=== PATIENT | female | born 1955 | race Caucasian/White ===

== ENCOUNTER 2018-02-11 10:01 | Observation (INO) | payer OTHER ==
[2018-02-11] MEDS ORDERED: ASPIRIN 81 MG TABLET, CHEWABLE PO ONE (10:23)
[2018-02-11] MEDS ORDERED: LORAZEPAM INJ 2 MG/1 ML VIAL IV ONE (10:30)
--- NOTE | 2018-02-11 10:35 | ER Document Report ---
ED General - General Chief Complaint: Chest Pain Stated Complaint: CHEST PAIN Time Seen by Provider: 02/11/18 10:23 TRAVEL OUTSIDE OF THE [place] IN LAST 30 DAYS: No - HPI Notes: Patient is a 62-year-old female with a history of hypothyroidism, hypertension, and type 2 diabetes who presents to the ED complaining of chest heaviness that began about 4 hours ago. Patient states that the heaviness is still present. Patient states that she thought she felt a soreness to her left arm as well as to the left shoulder blade area. Patient states that nothing makes the pain worse or better. Patient states that she is able to ambulate without any worsening symptoms or dyspnea on exertion. She has been eating and drinking without any difficulties. She is having normal bowel movements and urinating normally. She has not had any symptoms similar previously. No cardiopulmonary medical history. Denies any smoking or alcohol. Denies any prolonged immobilization, distance travel, recent surgery/trauma, personal cancer history, hormone use, smoking, or previous DVT/PE. She did not have any sweats or dizziness associated. Denies any headache, fever, URI, sore throat, palpitations, syncope, cough, shortness of breath, wheeze, dyspnea, abdominal pain, nausea/vomiting/diarrhea, urinary retention, dysuria, hematuria, loss of control of bowel or bladder, numbness/tingling, saddle anesthesia, muscle paralysis/weakness, or rash. - Related Data Allergies/Adverse Reactions: Iodinated Contrast- Oral and IV Dye [IV Dye, Iodine Containing] Allergy (Verified 02/15/16 08:57) levofloxacin [From Levaquin] Allergy (Verified 02/15/16 08:57) morphine Adverse Reaction (Verified 02/15/16 08:57) Nausea Past Medical History - Social History Smoking Status: Never Smoker Family History: Reviewed & Not Pertinent - Past Medical History Cardiac Medical History: Reports: Hx Hypertension Denies: Hx Coronary Artery Disease, Hx Heart Attack Pulmonary Medical History: Reports: Hx Pneumonia Denies: Hx Asthma, Hx Bronchitis, Hx COPD Neurological Medical History: Denies: Hx Cerebrovascular Accident, Hx Seizures Endocrine Medical History: Reports: Hx Diabetes Mellitus Type 2, Hx Hypothyroidism Musculoskeletal Medical History: Denies Hx Arthritis Past Surgical History: Reports: Hx Appendectomy, Hx Cholecystectomy, Hx Hysterectomy - partial, Hx Thyroid Surgery - thyroidectomy - Immunizations Hx Diphtheria, Pertussis, Tetanus Vaccination: Yes - 2011 Review of Systems - Review of Systems -: Yes All other systems reviewed and negative Physical Exam - Vital signs Vitals: Temp Pulse Resp BP Pulse Ox 99.1 F 98 16 187/99 H 98 02/11/18 10:15 02/11/18 10:15 02/11/18 10:15 02/11/18 10:15 02/11/18 10:15 - Notes Notes: PHYSICAL EXAMINATION: GENERAL: Well-appearing, well-nourished and in no acute distress. HEAD: Atraumatic, normocephalic. EYES: Pupils equal round and reactive to light, extraocular movements intact, sclera anicteric, conjunctiva are normal. ENT: Nares patent and without discharge. oropharynx clear without exudates. No tonsilar hypertrophy or erythema. Moist mucous membranes. NECK: Normal range of motion, supple without lymphadenopathy Chest: + minimally reproducible tenderness to palpation of the sternal area. LUNGS: Breath sounds clear to auscultation bilaterally and equal. No wheezes rales or rhonchi. HEART: Regular rate and rhythm without murmurs, rubs, gallops. ABDOMEN: Soft, nontender, nondistended abdomen. No guarding, no rebound. No masses appreciated. Normal bowel sounds present. No CVA tenderness bilaterally. Musculoskeletal: FROM to passive/active. Strength 5+/5. Nicho neg. No asymmetry to LE's. Extremities: No cyanosis, clubbing, or edema b/l. Peripheral pulses 2+. Capillary refill less than 3 seconds. NEUROLOGICAL: Normal speech, normal gait. PSYCH: anxious SKIN: Warm, Dry, normal turgor, no rashes or lesions noted. Course - Re-evaluation Re-evalutation: 02/11/18 10:33 Aspirin and nitro ordered as well as chest pain work up. I will give her a small dose of ativan as she does appear anxious. Pending her BP response to nitro, we may consider clonidine. Pt did take her lisinopril this morning. HR currently 93 and not tachycardic. No hypoxia or tachypnea. 02/11/18 11:42 Patient is an afebrile, well-hydrated, 62-year-old female who presents to the ED with atypical chest pain. Vitals are currently acceptable without any significant tachycardia, tachypnea, or hypoxia. PE is otherwise unremarkable aside from the mildly reproducible chest wall tenderness. Patient has a heart score of 4. CBC, CMP, cardiac enzymes/EKG, chest x-ray were acceptable at this time. I did review the case with the patient as well as the risk and benefit of observation versus discharge to home. Patient is open to being admitted for continued observation and serial enzymes. I did call and speak with our hospitalist, Dr. Schwartz, who accepted patient to telemetry floor. - Vital Signs Vital signs: Temp Pulse Resp BP Pulse Ox 99.1 F 98 20 161/100 H 97 02/11/18 10:15 02/11/18 10:15 02/11/18 11:31 02/11/18 11:31 02/11/18 11:31 - Laboratory Result Diagrams: 02/11/18 10:37 02/11/18 10:37 Laboratory results interpreted by me: 02/11/18 10:37 Potassium 3.5 L BUN 6 L Creatinine 0.48 L Glucose 255 H Discharge - Discharge Clinical Impression: Atypical chest pain Condition: Stable Disposition: ADMITTED INPATIENT Admitting Provider: Hospitalist - Dr. Schwartz Unit Admitted: Telemetry Referrals: SIMI TELLEZ FNP [Primary Care Provider] - Follow up as needed
[2018-02-11] MEDS: NITROGLYCERIN 0.4 MG/TAB 25 TAB/BOTTLE SL PRN ×2 (10:38→11:32)
[2018-02-11 10:49] LABS: ABSOLUTE EOSINOPHILS # (AUTO) 0.1 10^3/uL (0.0-0.6); ABSOLUTE LYMPHOCYTES (AUTO) 1.3 10^3/uL (0.5-4.7); ABSOLUTE MONOCYTES (AUTO) 0.5 10^3/uL (0.1-1.4); ABSOLUTE NEUT (AUTO) 4.3 10^3/uL (1.7-8.2); BASOPHILS % (AUTO) 0.2 % (0-2); EOSINOPHILS % (AUTO) 0.8 % (0-6); HEMATOCRIT 43.2 % (36.0-47.0); HEMOGLOBIN 15.2 g/dL (12.0-15.5); LYMPHOCYTES % (AUTO) 21.1 % (13-45); MEAN CORPUSCULAR HGB CONC 35.1 g/dL (32.0-36.0); MEAN CORPUSCULAR VOLUME 85 fl (80-97); MONOCYTES % (AUTO) 8.8 % (3-13); PLATELET COUNT 245 10^3/uL (150-450); RED BLOOD COUNT 5.07 10^6/uL (3.72-5.28); RED CELL DISTRIBUTION WIDTH 12.4 % (11.5-14.0); SEGMENTED NEUTROPHILS % (AUTO) 69.1 % (42-78); TOTAL CELLS COUNTED % (AUTO) 100 %; WHITE BLOOD COUNT 6.2 10^3/uL (4.0-10.5)
[2018-02-11 10:55] LABS: INTERNATIONAL RATION (INR) 0.79; PROTHROMBIN TIME 11.4 SEC (11.4-15.4)
[2018-02-11 11:04] LABS: ALANINE AMINOTRANSFERASE 25 U/L (9-52); ALKALINE PHOSPHATASE 88 U/L (38-126); ANION GAP 9 (5-19); ASPARTATE AMINO TRANSFERASE 21 U/L (14-36); BILIRUBIN,DIRECT 0.3 mg/dL (0.0-0.4); BILIRUBIN,TOTAL 1.3 mg/dL (0.2-1.3); BLOOD UREA NITROGEN 6 mg/dL (7-20); CALCIUM 9.2 mg/dL (8.4-10.2); CARBON DIOXIDE 30 mmol/L (22-30); CHLORIDE 99 mmol/L (98-107); GLUCOSE 255 mg/dL (75-110); POTASSIUM 3.5 mmol/L (3.6-5.0); SODIUM 138.3 mmol/L (137-145); TOTAL PROTEIN 6.3 g/dL (6.3-8.2)
--- NOTE | 2018-02-11 11:29 | RADIOLOGY REPORT (SQ) ---
EXAM DESCRIPTION: CHEST SINGLE VIEW COMPLETED DATE/TIME: 02/11/2018 11:18 am REASON FOR STUDY: CP COMPARISON: 08/04/2007. EXAM PARAMETERS: NUMBER OF VIEWS: One view. TECHNIQUE: Single frontal radiographic view of the chest acquired. RADIATION DOSE: NA LIMITATIONS: None. FINDINGS: LUNGS AND PLEURA: No opacities, masses or pneumothorax. No pleural effusion. MEDIASTINUM AND HILAR STRUCTURES: No masses. Contour normal. HEART AND VASCULAR STRUCTURES: Heart normal in size. Normal vasculature. BONES: No acute findings. HARDWARE: None in the chest. OTHER: No other significant finding. IMPRESSION: NO ACUTE RADIOGRAPHIC FINDING IN THE CHEST. TECHNICAL DOCUMENTATION: JOB ID: [id number] New [employer]- All Rights Reserved Reading location - IP/workstation name: [email or web address]
[2018-02-11] MEDS ORDERED: NITROGLYCERIN 0.4 MG/TAB 25 TAB/BOTTLE SL PRN (12:35)
--- NOTE | 2018-02-11 12:38 | PDOC H&P ---
History of Present Illness Admission Date/PCP: 02/11/18 11:59 DAVID COLEMAN History of Present Illness: RADHA ORTEGA is a 62 year old female with a past medical history of non -insulin-dependent diabetes mellitus, hypertension, hyperlipidemia and hypothyroidism who presented with chest pain. Patient says that she woke up around 6:45 this morning and experience chest heaviness, and the midsternal area as if some weight is placed on top of her chest, 3/10 intensity. This lingered and she decided to come to the ER. She was given 4 baby aspirin and nitro and he says she did not get significant relief. She denies shortness of breath or palpitations. She is not sure if it is exertional as she said she has not really exerted herself much this morning. She denies any fever, cough or chills. She denies prior history of CAD or MS. She says she never had a stress testing done before. Past Medical History Cardiac Medical History: Reports: Hypertension Denies: Coronary Artery Disease, Myocardial Infarction Pulmonary Medical History: Reports: Pneumonia Denies: Asthma, Bronchitis, Chronic Obstructive Pulmonary Disease (COPD) Neurological Medical History: Denies: Seizures Endocrine Medical History: Reports: Diabetes Mellitus Type 2, Hypothyroidism Musculoskeltal Medical History: Denies: Arthritis Hematology: Denies: Anemia Past Surgical History Past Surgical History: Reports: Appendectomy, Cholecystectomy, Hysterectomy - partial Social History Smoking Status: Never Smoker Family History Family History: Reviewed & Not Pertinent Parental Family History Reviewed: Yes - No premature CAD Children Family History Reviewed: No Sibling(s) Family History Reviewed.: No Medication/Allergy Home Medications: Levothyroxine Sodium [Synthroid] 125 mcg PO Q6AM 02/11/18 Lisinopril [Prinivil 10 mg Tablet] 10 mg PO DAILY 02/11/18 Sitagliptin Phos/Metformin HCl [Janumet Xr 100-1,000 mg Tablet] 1 each PO QPM 02/11/18 Allergies/Adverse Reactions: Iodinated Contrast- Oral and IV Dye [IV Dye, Iodine Containing] Allergy (Verified 02/11/18 11:58) levofloxacin [From Levaquin] Allergy (Verified 02/11/18 11:58) morphine Adverse Reaction (Verified 02/11/18 11:58) Nausea Review of Systems All systems: reviewed and no additional remarkable complaints except as stated - As mentioned in HPI Physical Exam Vital Signs: Temp Pulse Resp BP Pulse Ox 99.1 F 98 17 167/105 H 100 02/11/18 10:15 02/11/18 10:15 02/11/18 12:01 02/11/18 12:01 02/11/18 12:01 General appearance: PRESENT: no acute distress, well-developed, well-nourished Head exam: PRESENT: atraumatic, normocephalic Eye exam: PRESENT: conjunctiva pink, EOMI, PERRLA. ABSENT: scleral icterus Ear exam: PRESENT: normal external ear exam Mouth exam: PRESENT: moist, tongue midline Neck exam: ABSENT: carotid bruit, JVD, lymphadenopathy, thyromegaly Respiratory exam: PRESENT: clear to auscultation maxine. ABSENT: rales, rhonchi, wheezes Pulses: PRESENT: normal dorsalis pedis pul GI/Abdominal exam: PRESENT: normal bowel sounds, soft. ABSENT: distended, guarding, mass, organolmegaly, rebound, tenderness Rectal exam: PRESENT: deferred Neurological exam: PRESENT: alert, awake, oriented to person, oriented to place, oriented to time, oriented to situation, CN II-XII grossly intact. ABSENT: motor sensory deficit Results Laboratory Results: 02/11/18 10:37 02/11/18 10:37 02/11/18 02/11/18 10:37 10:37 WBC 6.2 RBC 5.07 Hgb 15.2 Hct 43.2 MCV 85 MCH 30.0 MCHC 35.1 RDW 12.4 Plt Count 245 Seg Neutrophils % 69.1 Lymphocytes % 21.1 Monocytes % 8.8 Eosinophils % 0.8 Basophils % 0.2 Absolute Neutrophils 4.3 Absolute Lymphocytes 1.3 Absolute Monocytes 0.5 Absolute Eosinophils 0.1 Absolute Basophils 0.0 Sodium 138.3 Potassium 3.5 L Chloride 99 Carbon Dioxide 30 Anion Gap 9 BUN 6 L Creatinine 0.48 L Est GFR ( Amer) > 60 Est GFR (Non-Af Amer) > 60 Glucose 255 H Calcium 9.2 Total Bilirubin 1.3 AST 21 ALT 25 Alkaline Phosphatase 88 Total Protein 6.3 Albumin 4.0 02/11/18 10:37 Troponin I 0.063 Impressions: Chest X-Ray 02/11/18 10:23 IMPRESSION: NO ACUTE RADIOGRAPHIC FINDING IN THE CHEST. Assessment & Plan - Diagnosis (1) Atypical chest pain Is this a current diagnosis for this admission?: Yes Plan: EKG is unremarkable aside from a left anterior fascicular block which is not new compared to the EKG in 2012. Troponin is mildly elevated at 0.06. We will continue to cycle troponins and EKGs. Discussed with Dr. Fisher and will schedule patient for stress testing tomorrow if her troponin will stabilize or trend down and if she will have improvement of her chest pain. (2) Diabetes mellitus Qualifiers: Diabetes mellitus type: type 2 Is this a current diagnosis for this admission?: Yes Plan: Patient takes metformin at home. Will place patient on sliding scale for now. Check A1c. - Time Time Spent: 30 to 50 Minutes
[2018-02-11] MEDS ORDERED: LIDOCAINE 2% VISCOUS SOLN 20 ML UDCUP PO ONE (13:15)
[2018-02-11] MEDS ORDERED: METOCLOPRAMIDE HCL ORAL SOLN 10 MG/10 ML UDCUP PO ONE (13:15)
[2018-02-11] MEDS ORDERED: MAG HYDROX/AL HYDROX/SIMETH SUSP 30 ML UDCUP PO ONE (13:15)
--- NOTE | 2018-02-11 13:15 | EKG REPORT ---
SEVERITY:- ABNORMAL ECG - SINUS RHYTHM LEFT ANTERIOR FASCICULAR BLOCK CONSIDER ANTERIOR INFARCT : Confirmed by: Mert Tapia MD 11-Feb-2018 13:14:36
[2018-02-11] MEDS ORDERED: DEXTROSE 50%-WATER 25 GM/50 ML DISP.SYRIN IV PRN ×2 (15:05)
[2018-02-11] MEDS ORDERED: INSULIN LISPRO 100 UNIT/ML 3 ML VIAL SUBCUT PRN (15:05)
[2018-02-11] MEDS ORDERED: DEXTROSE 40% GEL 15 GM TUBE PO PRN ×2 (15:05)
[2018-02-11] MEDS ORDERED: GLUCAGON,HUMAN RECOMB 1 MG INJ IM PRN (15:05)
[2018-02-11 15:46] VITALS: BP 143/77
[2018-02-11] MEDS ORDERED: NITROGLYCERIN/D5W 50 MG/250 ML RTUINJ IV PRN (17:54)
[2018-02-11] MEDS ORDERED: ENOXAPARIN SODIUM INJ 100 MG/1 ML DISP.SYRIN SUBCUT SCH (18:00)
--- NOTE | 2018-02-11 18:07 | PDOC TRANSFER SUMMARY ---
General Admission Date/PCP: 02/11/18 11:59 CATHRYN COLEMANP - Transfer Diagnosis (1) NSTEMI (non-ST elevated myocardial infarction) Is this a current diagnosis for this admission?: Yes (2) Diabetes mellitus Is this a current diagnosis for this admission?: Yes - Transfer Medications Home Medications: Levothyroxine Sodium [Synthroid] 125 mcg PO Q6AM 02/11/18 Lisinopril [Prinivil 10 mg Tablet] 10 mg PO DAILY 02/11/18 Sitagliptin Phos/Metformin HCl [Janumet Xr 100-1,000 mg Tablet] 1 each PO QPM 02/11/18 Transfer Medications: Current Medications Aspirin (Aspirin 81 Mg Chewable Tablet) 81 mg PO DAILY [facility] Stop: 03/14/18 09:59 Dextrose (Dextrose Inj 50% Syringe (25 Gm/50 Ml)) 12.5 gm IV PRN PRN; Protocol PRN Reason: FOR BG 50-69 IN ALERT PATIENT Stop: 03/13/18 15:04 Dextrose (Dextrose Inj 50% Syringe (25 Gm/50 Ml)) 25 gm IV PRN PRN; Protocol PRN Reason: PER PROTOCOL Stop: 03/13/18 15:04 Enoxaparin Sodium (Lovenox Inj 100 Mg/1 Ml Disp.Syrin) 95 mg SUBCUT Q12A ROWAN Stop: 03/13/18 17:59 Last Admin: 02/11/18 17:44 Dose: 95 mg Documented by: Glucagon (Glucagen Inj 1 Mg Vial) 1 mg IM PRN PRN; Protocol PRN Reason: Evaluate for BG < 70 Stop: 03/13/18 15:04 Glucose (Glutose 40% Gel 15 Gm Tube) 15 gm PO PRN PRN; Protocol PRN Reason: FOR BG 50-69 IN ALERT PATIENT Stop: 03/13/18 15:04 Glucose (Glutose 40% Gel 15 Gm Tube) 30 gm PO PRN PRN; Protocol PRN Reason: FOR BG < 50 IN ALERT PATIENT Stop: 03/13/18 15:04 Nitroglycerin/Dextrose (Ntg Rtu 50 Mg/D5w 250 Ml Iv Premix Bottle) 50 mg in 250 mls @ 0 mls/hr IV CONTINUOUS PRN; Protocol PRN Reason: THIS MED IS NOT "PRN" Stop: 03/13/18 17:53 Insulin Human Lispro (Humalog Insulin 100 Unit/1 Ml 3 Ml Vial) 0 - 12 unit SUBCUT ACHSP PRN; Protocol PRN Reason: PER PROTOCOL Stop: 03/13/18 15:04 Last Admin: 02/11/18 16:28 Dose: 4 unit Documented by: Levothyroxine Sodium (Synthroid 0.1 Mg Tablet) 0.1 mg PO Q6AM [facility] Stop: 03/14/18 05:59 Levothyroxine Sodium (Synthroid 0.025 Mg Tablet) 0.025 mg PO Q6AM ROWAN Stop: 03/14/18 05:59 Lisinopril (Prinivil 10 Mg Tablet) 10 mg PO DAILY [facility] Stop: 03/14/18 09:59 Nitroglycerin (Nitrostat 0.4 Mg (1/150 Gr) Tabs 25/Bottle) 1 tab SL Q5MP PRN PRN Reason: FOR CHEST PAIN Stop: 03/13/18 12:34 Sodium Chloride (Saline Flush 2.5 Ml Monoject Prefil Syrin) 2.5 ml IV Q8 [facility] Stop: 03/13/18 13:59 Last Admin: 02/11/18 14:11 Dose: Not Given Documented by: - Allergies Allergies/Adverse Reactions: Iodinated Contrast- Oral and IV Dye [IV Dye, Iodine Containing] Allergy (German ified 02/11/18 11:58) levofloxacin [From Levaquin] Allergy (Verified 02/11/18 11:58) morphine Adverse Reaction (Verified 02/11/18 11:58) Nausea Hospital Course Hospital Course: RADHA ORTEGA is a 62 year old female with a past medical history of n [id number] diabetes mellitus, hypertension, hyperlipidemia, obesity and hypothyroidism who presented with chest pain. Patient says that she woke up around 6:45 this morning and experience chest heaviness, and the midsternal area as if some heavy weight is placed on top of her chest, 3/10 intensity. This lingered and she decided to come to the ER. She was given 4 baby aspirin and nitro and he says she did not get significant relief. She denies shortness of breath or palpitations. She denies any fever, cough or chills. She denies prior history of CAD or DE. She says she never had a stress testing done before. Initial troponin was 0.06. Her EKGs shows LAFB with very mild ST depressions on the anterior leads. Troponin was repeated in 5 hrs and significantly went up to 0.58. Her chest pain persists at 3/10. Discussed with cardiology who recommended starting patient on nitro drip, Lovenox and transfer to tertiary center for cath. Discussed with [facility] cardiac connection and Dr. Payan has accepted the transfer. Physical Exam Vital Signs: Temp Pulse Resp BP Pulse Ox 98.2 F 90 14 143/77 H 99 02/11/18 15:14 02/11/18 15:14 02/11/18 15:14 02/11/18 15:14 02/11/18 15:14 Intake & Output 02/10/18 02/11/18 02/12/18 06:59 06:59 06:59 Weight 213 lb 6.519 oz General appearance: PRESENT: no acute distress, well-developed, well-nourished Head exam: PRESENT: atraumatic, normocephalic Eye exam: PRESENT: conjunctiva pink, EOMI, PERRLA. ABSENT: scleral icterus Ear exam: PRESENT: normal external ear exam Mouth exam: PRESENT: moist, tongue midline Neck exam: ABSENT: carotid bruit, JVD, lymphadenopathy, thyromegaly Respiratory exam: PRESENT: clear to auscultation maxine. ABSENT: rales, rhonchi, wheezes Cardiovascular exam: PRESENT: RRR. ABSENT: diastolic murmur, rubs, systolic murmur Pulses: PRESENT: normal dorsalis pedis pul GI/Abdominal exam: PRESENT: normal bowel sounds, soft. ABSENT: distended, guarding, mass, organolmegaly, rebound, tenderness Rectal exam: PRESENT: deferred Neurological exam: PRESENT: alert, awake, oriented to person, oriented to place, oriented to time, oriented to situation, CN II-XII grossly intact. ABSENT: motor sensory deficit Results Laboratory Results: 02/11/18 10:37 02/11/18 10:37 02/11/18 02/11/18 02/11/18 10:37 10:37 10:37 WBC 6.2 RBC 5.07 Hgb 15.2 Hct 43.2 MCV 85 MCH 30.0 MCHC 35.1 RDW 12.4 Plt Count 245 Seg Neutrophils % 69.1 Lymphocytes % 21.1 Monocytes % 8.8 Eosinophils % 0.8 Basophils % 0.2 Absolute Neutrophils 4.3 Absolute Lymphocytes 1.3 Absolute Monocytes 0.5 Absolute Eosinophils 0.1 Absolute Basophils 0.0 Sodium 138.3 Potassium 3.5 L Chloride 99 Carbon Dioxide 30 Anion Gap 9 BUN 6 L Creatinine 0.48 L Est GFR ( Amer) > 60 Est GFR (Non-Af Amer) > 60 Glucose 255 H Calcium 9.2 Total Bilirubin 1.3 AST 21 ALT 25 Alkaline Phosphatase 88 Total Protein 6.3 Albumin 4.0 TSH 1.73 02/11/18 02/11/18 10:37 15:00 Troponin I 0.063 0.580 Impressions: Chest X-Ray 02/11/18 10:23 IMPRESSION: NO ACUTE RADIOGRAPHIC FINDING IN THE CHEST.
--- NOTE | 2018-02-11 18:20 | EKG REPORT ---
SEVERITY:- ABNORMAL ECG - SINUS RHYTHM LEFT ANTERIOR FASCICULAR BLOCK BORDERLINE R WAVE PROGRESSION, ANTERIOR LEADS BORDERLINE T ABNORMALITIES, ANTERIOR LEADS : Confirmed by: Mert Tapia MD 11-Feb-2018 18:19:10
[2018-02-11] MEDS ORDERED: HEPARIN SOD (PORCINE) 5,000 UNIT/ML 1 ML SYRINGE SUBCUT SCH (22:00)
[2018-02-12] MEDS ORDERED: LEVOTHYROXINE SODIUM 0.1 MG TABLET PO SCH (06:00)
[2018-02-12] MEDS ORDERED: (PENDING PHARMACY ID) (Levothyroxine Sodium [Synthroid] 125 MCG) PO SCH (06:00)
[2018-02-12] MEDS ORDERED: LEVOTHYROXINE SODIUM 0.025 MG TABLET PO SCH (06:00)
[2018-02-12] MEDS ORDERED: LISINOPRIL 10 MG TABLET PO SCH (10:00)
[2018-02-12] MEDS ORDERED: ASPIRIN 81 MG TABLET, CHEWABLE PO SCH (10:00)
== END 2018-02-11 19:45 | disposition short-term general hospital (02) ==
LOC: ER 10:01 → EH 11:59 → INTOOBSV 11:59 → 4S 15:42 → 3W 19:15
PROVIDERS: ADMIT Internal Medicine; ATTEND Internal Medicine
DX: I21.4 Non-ST elevation (NSTEMI) myocardial infarction (principal); E11.9 Type 2 diabetes mellitus without complications; I44.4 Left anterior fascicular block; E03.9 Hypothyroidism, unspecified; I10 Essential (primary) hypertension; Z79.899 Other long term (current) drug therapy; Z90.49 Acquired absence of other specified parts of digestive tract; Z79.84 Long term (current) use of oral hypoglycemic drugs
CPT/HCPCS: 93005 ×2; 99285; 96374; 36415; 82962; 84443; 85025; 85610; 80053; 84484; 83036; 71045; 93010; J1815; J3490; J2060; J1650; G0378

== ENCOUNTER 2018-02-16 17:23 | Emergency (ER) | payer OTHER ==
[2018-02-16] MEDS ORDERED: ASPIRIN 81 MG TABLET, CHEWABLE PO ONE (17:49)
[2018-02-16] MEDS ORDERED: METOCLOPRAMIDE HCL ORAL SOLN 10 MG/10 ML UDCUP PO ONE (18:04)
[2018-02-16] MEDS ORDERED: MAG HYDROX/AL HYDROX/SIMETH SUSP 30 ML UDCUP PO ONE (18:04)
[2018-02-16] MEDS ORDERED: LIDOCAINE 2% VISCOUS SOLN 20 ML UDCUP PO ONE (18:04)
--- NOTE | 2018-02-16 18:08 | ER Document Report ---
ED General - General Stated Complaint: NAUSEA Time Seen by Provider: 02/16/18 17:47 Mode of Arrival: Ambulatory Information source: Patient, [facility] Records, Outside Facility Records Notes: 62-year-old female with hypertension, type 2 diabetes, hypothyroidism, coronary artery disease with recent diagnosis of an STEMI 5 days ago presents with chest pain that started 8 hours prior to arrival. Patient describes the pain as burning, intermittent and without radiation. Patient denies associated diaphoresis, nausea, shortness of breath, lightheadedness. Patient was discharged from the hospital 2 days ago with new medications which include isosorbide 30 mg daily, Klor-Con 20 mg 2 tabs twice daily metoprolol 50 mg daily Brilinta 90 mg daily and atorvastatin 80 mg daily. Patient is very tearful will not tell me why she is crying. States that her children just left to go back to [place]. TRAVEL OUTSIDE OF THE [place] IN LAST 30 DAYS: No - Related Data Allergies/Adverse Reactions: Iodinated Contrast- Oral and IV Dye [IV Dye, Iodine Containing] Allergy (Verified 02/11/18 11:58) levofloxacin [From Levaquin] Allergy (Verified 02/11/18 11:58) morphine Adverse Reaction (Verified 02/11/18 11:58) Nausea Past Medical History - Social History Smoking Status: Never Smoker Chew tobacco use (# tins/day): No Frequency of alcohol use: None Drug Abuse: None Family History: Reviewed & Not Pertinent Patient has suicidal ideation: No Patient has homicidal ideation: No - Past Medical History Cardiac Medical History: Reports: Hx Heart Attack, Hx Hypertension Denies: Hx Coronary Artery Disease Pulmonary Medical History: Reports: Hx Pneumonia Denies: Hx Asthma, Hx Bronchitis, Hx COPD Neurological Medical History: Denies: Hx Cerebrovascular Accident, Hx Seizures Endocrine Medical History: Reports: Hx Diabetes Mellitus Type 2, Hx Hypothyroidism Renal/ Medical History: Denies: Hx Peritoneal Dialysis Musculoskeletal Medical History: Denies Hx Arthritis Past Surgical History: Reports: Hx Appendectomy, Hx Cholecystectomy, Hx Hysterectomy, Hx Orthopedic Surgery - toe, Hx Thyroid Surgery - thyroidectomy - Immunizations Hx Diphtheria, Pertussis, Tetanus Vaccination: Yes - 2011 Physical Exam - Vital signs Vitals: Temp Pulse Resp BP Pulse Ox 98.6 F 97 16 166/93 H 97 02/16/18 17:58 02/16/18 17:58 02/16/18 17:58 02/16/18 17:58 02/16/18 17:58 Course - Re-evaluation Re-evalutation: Laboratory 02/16/18 02/16/18 02/16/18 18:05 18:05 18:05 WBC 8.2 RBC 5.40 H Hgb 15.8 H Hct 45.1 MCV 84 MCH 29.3 MCHC 35.1 RDW 12.6 Plt Count 312 Seg Neutrophils % 71.0 Lymphocytes % 19.6 Monocytes % 8.5 Eosinophils % 0.5 Basophils % 0.4 Absolute Neutrophils 5.8 Absolute Lymphocytes 1.6 Absolute Monocytes 0.7 Absolute Eosinophils 0.0 Absolute Basophils 0.0 Sodium 136.8 L Potassium 3.9 Chloride 102 Carbon Dioxide 25 Anion Gap 10 BUN 12 Creatinine 0.46 L Est GFR ( Amer) > 60 Est GFR (Non-Af Amer) > 60 Glucose 204 H Calcium 9.8 Total Bilirubin 1.8 H Direct Bilirubin 0.2 Neonat Total Bilirubin Not Reportable Neonat Direct Bilirubin Not Reportable Neonat Indirect Bili Not Reportable AST 40 H ALT 31 Alkaline Phosphatase 67 Creatine Kinase 60 CK-MB (CK-2) 0.56 Troponin I 1.550 Total Protein 7.1 Albumin 4.1 Lipase 02/16/18 02/16/18 02/16/18 18:05 20:50 23:00 WBC RBC Hgb Hct MCV MCH MCHC RDW Plt Count Seg Neutrophils % Lymphocytes % Monocytes % Eosinophils % Basophils % Absolute Neutrophils Absolute Lymphocytes Absolute Monocytes Absolute Eosinophils Absolute Basophils Sodium Potassium Chloride Carbon Dioxide Anion Gap BUN Creatinine Est GFR ( Amer) Est GFR (Non-Af Amer) Glucose Calcium Total Bilirubin Direct Bilirubin Neonat Total Bilirubin Neonat Direct Bilirubin Neonat Indirect Bili AST ALT Alkaline Phosphatase Creatine Kinase CK-MB (CK-2) Troponin I 1.660 1.590 Total Protein Albumin Lipase 219.9 Chest X-Ray 02/16/18 17:49 IMPRESSION: NO ACUTE RADIOGRAPHIC FINDING IN THE CHEST. Temp Pulse Resp BP Pulse Ox 98.6 F 97 16 166/93 H 97 02/16/18 17:58 02/16/18 17:58 02/16/18 17:58 02/16/18 17:58 02/16/18 17:58 02/16/18 19:14 Called [facility] where the patient was sent from [facility] after having found to have an NSTEMI, to see exactly what her last troponin upon discharge was. They report her last troponin upon discharge was 6.85. Her troponin here today is 1.55. They also state that patient did not require any stent placement or angioplasty. 02/16/18 22:41 Patient reevaluated after receiving 0.5 mg of Ativan IV. She states that her chest pain has resolved. She is no longer tearful. 02/16/18 23:52 Patient reevaluated again after her third troponin. She still remains chest pain free. I did call [facility] again to let them know that her second troponin went up by 0.1 but they assured me that this was still a great improvement when compared to her previous troponin upon discharge which was 6.85. 02/16/18 23:55 Third troponin is 1.59. Patient advised to take her new medications with food. She is also advised to document any adverse effects that they may cause so that she could discuss this with her glass checker and primary care physician. 62-year-old female with recent diagnosis of an STEMI presents with complaint of burning chest pain that started several hours prior to arrival. Vital signs reviewed upon arrival and patient is afebrile, mildly hypertensive but not hypoxic. She does not appear toxic or dehydrated. She is in mild distress but tearful, appears anxious. Upon my initial exam she has no chest pain. Patient' s initial troponin was elevated but I did contact [facility] who told me her discharge troponin was 6.85. 3 sets of troponins were obtained during her ED course and remained essentially the same. Repeat EKG was again unchanged and without evidence of ST elevation. Patient has had no further chest pain during her ED course. Both her and her are comfortable with discharge home. Patient was evaluated and treated as appropriate for the patient's presenting symptoms and complaint, with consideration of any critical or life threatening conditions that may be associated with their obtained history and exam as noted above. All results were discussed with patient. Patient provided the opportunity to ask questions, and express concerns. Patient was educated on treatments based on their presumed diagnosis as noted above. At this time we will discharge the patient with return precautions and follow-up recommendations. Verbal discharge instructions given a the bedside. Medication warnings reviewed. Patient is in agreement with this plan and has verbalized understanding of return precautions. After careful consideration I feel that that patient can be safely discharged from the emergency department, they were advised to followup with a primary care physician in 2-3 days. Dictation on this chart was performed using voice recognition software and may result in unintended grammatical, spelling, syntax or errors. - Vital Signs Vital signs: Temp Pulse Resp BP Pulse Ox 98.6 F 97 16 166/93 H 97 02/16/18 17:58 02/16/18 17:58 02/16/18 17:58 02/16/18 17:58 02/16/18 17:58 - Laboratory Result Diagrams: 02/16/18 18:05 02/16/18 18:05 Laboratory results interpreted by me: 02/16/18 02/16/18 18:05 18:05 RBC 5.40 H Hgb 15.8 H Sodium 136.8 L Creatinine 0.46 L Glucose 204 H Total Bilirubin 1.8 H AST 40 H - Diagnostic Test Radiology reviewed: Image reviewed, Reports reviewed - EKG Interpretation by Mo EKG shows normal: Sinus rhythm Rate: Normal Rhythm: NSR [place]/QRS: LAHB/LAFB When compared to previous EKG there are: No significant change Critical Care Note - Critical Care Note Total time excluding time spent on procedures (mins): 40 - Minutes of critical care time spent in direct contact evaluating and reevaluating the patient, treating symptoms, reviewing labs and studies and speaking with family and consultants excluding any procedures Discharge - Discharge Clinical Impression: Anxiety, Nausea, Hyperglycemia Chest pain Qualifiers: Chest pain type: unspecified Qualified Code(s): R07.9 - Chest pain, unspecified Diabetes mellitus Qualifiers: Diabetes mellitus type: type 2 Diabetes mellitus usp insulin use: without exterminator termite use Diabetes mellitus complication status: without complication Qualified Code(s): E11.9 - Type 2 diabetes mellitus without complications Hypertension Qualifiers: Hypertension type: unspecified Qualified Code(s): I10 - Essential (primary) hypertension Condition: Good Disposition: HOME, SELF-CARE Instructions: Chest Pain of Unclear Cause ([facility]) Additional Instructions: You were seen today for chest pain. The exact cause of your pain is unclear. However, based on your cardiac enzyme testing, chest x-ray, and EKG it does not appear that it is from an immediately life-threatening cause at this time. Although your testing here is normal is critical that you follow-up with your primary care physician for continued evaluation of this chest pain and possible stress testing. I recommended you see your physician within the next 24-48 hours to be evaluated for consideration of a stress test. Please return to emergency department immediately if you have worsening of your chest pain, shortness of breath, vomiting, become unable to exert yourself due to pain or difficulty breathing, you pass out, or have any pain that radiates into your arms, jaw, or back. Please also return if you have any additional symptoms that are concerning to you. Prescriptions: Lorazepam [Ativan 0.5 mg Tablet] 0.5 mg PO Q12H PRN #6 tab PRN Reason: Forms: Elevated Blood Pressure Referrals: SIMI TELLEZ FNP [Primary Care Provider] - Follow up tomorrow
--- NOTE | 2018-02-16 18:14 | RADIOLOGY REPORT (SQ) ---
EXAM DESCRIPTION: CHEST SINGLE VIEW COMPLETED DATE/TIME: 02/16/2018 6:06 pm REASON FOR STUDY: chest pain COMPARISON: 02/11/2018 EXAM PARAMETERS: NUMBER OF VIEWS: One view. TECHNIQUE: Single frontal radiographic view of the chest acquired. RADIATION DOSE: NA LIMITATIONS: None. FINDINGS: LUNGS AND PLEURA: No opacities, masses or pneumothorax. No pleural effusion. MEDIASTINUM AND HILAR STRUCTURES: No masses. Contour normal. HEART AND VASCULAR STRUCTURES: Heart normal in size. Normal vasculature. BONES: No acute findings. HARDWARE: None in the chest. OTHER: No other significant finding. IMPRESSION: NO ACUTE RADIOGRAPHIC FINDING IN THE CHEST. TECHNICAL DOCUMENTATION: JOB ID: [id number] [employer]- All Rights Reserved Reading location - IP/workstation name: [email or web address]
[2018-02-16] MEDS ORDERED: ONDANSETRON HCL 8 MG TABLET PO ONE (18:21)
[2018-02-16] MEDS ORDERED: ONDANSETRON 4 MG TAB.RAPDIS PO ONE (18:23)
[2018-02-16 18:26] LABS: ABSOLUTE LYMPHOCYTES (AUTO) 1.6 10^3/uL (0.5-4.7); ABSOLUTE MONOCYTES (AUTO) 0.7 10^3/uL (0.1-1.4); ABSOLUTE NEUT (AUTO) 5.8 10^3/uL (1.7-8.2); BASOPHILS % (AUTO) 0.4 % (0-2); EOSINOPHILS % (AUTO) 0.5 % (0-6); HEMATOCRIT 45.1 % (36.0-47.0); HEMOGLOBIN 15.8 g/dL (12.0-15.5); LYMPHOCYTES % (AUTO) 19.6 % (13-45); MEAN CORPUSCULAR HEMOGLOBIN 29.3 pg (27.0-33.4); MEAN CORPUSCULAR HGB CONC 35.1 g/dL (32.0-36.0); MEAN CORPUSCULAR VOLUME 84 fl (80-97); MONOCYTES % (AUTO) 8.5 % (3-13); PLATELET COUNT 312 10^3/uL (150-450); RED CELL DISTRIBUTION WIDTH 12.6 % (11.5-14.0); TOTAL CELLS COUNTED % (AUTO) 100 %; WHITE BLOOD COUNT 8.2 10^3/uL (4.0-10.5)
[2018-02-16 18:42] LABS: ALANINE AMINOTRANSFERASE 31 U/L (9-52); ALBUMIN 4.1 g/dL (3.5-5.0); ALKALINE PHOSPHATASE 67 U/L (38-126); ANION GAP 10 (5-19); ASPARTATE AMINO TRANSFERASE 40 U/L (14-36); BILIRUBIN,DIRECT 0.2 mg/dL (0.0-0.4); BILIRUBIN,TOTAL 1.8 mg/dL (0.2-1.3); BLOOD UREA NITROGEN 12 mg/dL (7-20); CALCIUM 9.8 mg/dL (8.4-10.2); CARBON DIOXIDE 25 mmol/L (22-30); CHLORIDE 102 mmol/L (98-107); CREATINE KINASE 60 U/L (30-135); GLUCOSE 204 mg/dL (75-110); POTASSIUM 3.9 mmol/L (3.6-5.0); SODIUM 136.8 mmol/L (137-145); TOTAL PROTEIN 7.1 g/dL (6.3-8.2)
[2018-02-16 18:51] LABS: CREATINE KINASE MB 0.56 ng/mL (<4.55)
[2018-02-16 18:57] LABS: TROPONIN I 1.55 ng/mL
[2018-02-16] MEDS ORDERED: LORAZEPAM INJ 2 MG/1 ML VIAL IV ONE (19:27)
[2018-02-16 19:30] LABS: LIPASE 219.9 U/L (23-300)
--- NOTE | 2018-02-17 00:01 | EKG REPORT ---
SEVERITY:- ABNORMAL ECG - SINUS RHYTHM LEFT ANTERIOR FASCICULAR BLOCK BORDERLINE R WAVE PROGRESSION, ANTERIOR LEADS : Confirmed by: Felicity Romero 17-Feb-2018 00:00:19
--- NOTE | 2018-02-17 00:01 | EKG REPORT ---
SEVERITY:- ABNORMAL ECG - SINUS RHYTHM LEFT ANTERIOR FASCICULAR BLOCK LEFT VENTRICULAR HYPERTROPHY : Confirmed by: Felicity Romero 17-Feb-2018 00:00:04
--- NOTE | 2018-02-17 00:01 | EKG REPORT ---
SEVERITY:- ABNORMAL ECG - SINUS RHYTHM LEFT ANTERIOR FASCICULAR BLOCK BORDERLINE R WAVE PROGRESSION, ANTERIOR LEADS : Confirmed by: Felicity Romero 17-Feb-2018 00:00:36
[2018-02-17 00:37] VITALS: BP 117/81
== END 2018-02-17 00:37 | disposition home or self-care (01) ==
LOC: ER 17:23
DX: R11.0 Nausea (principal); F41.9 Anxiety disorder, unspecified; R07.9 Chest pain, unspecified; E11.65 Type 2 diabetes mellitus with hyperglycemia; E03.9 Hypothyroidism, unspecified; I25.2 Old myocardial infarction; Z88.6 Allergy status to analgesic agent; I10 Essential (primary) hypertension; Z88.3 Allergy status to other anti-infective agents
CPT/HCPCS: 93005; 99284; 96374; 36415; 82553; 82550; 83690; 85025; 80053; 84484; 71045; 93010; S0119; J3490; J2060

== ENCOUNTER 2018-03-06 17:18 | Emergency (ER) | payer OTHER ==
--- NOTE | 2018-03-06 17:45 | ER Document Report ---
ED Medical Screen (RME) - General Chief Complaint: Chest Pain Stated Complaint: CHEST DISCOMFORT Time Seen by Provider: 03/06/18 17:41 Notes: 62-year-old female patient suffered a non-STEMI on 02/11/2018, was transferred to [facility]. She had a cath showing a 40% lesion, did not have a stent placed. Return to [facility] ER on 02/16/2019 with chest pain and was discharged home with noncardiac chest pain. She presents today complaining of just not feeling well, some discomfort across her upper back, and feeling paranoid with any symptoms after suffering the non-STEMI. I have greeted and performed a rapid initial assessment of this patient. A c omprehensive ED assessment and evaluation of the patient, analysis of test results and completion of the medical decision making process will be conducted by additional ED providers. TRAVEL OUTSIDE OF THE [place]. IN LAST 30 DAYS: No - Related Data Allergies/Adverse Reactions: Iodinated Contrast- Oral and IV Dye [IV Dye, Iodine Containing] Allergy (Verified 03/06/18 17:19) levofloxacin [From Levaquin] Allergy (Verified 03/06/18 17:19) morphine Adverse Reaction (Verified 03/06/18 17:19) Nausea Past Medical History - Past Medical History Cardiac Medical History: Reports: Hx Heart Attack, Hx Hypertension Denies: Hx Coronary Artery Disease Pulmonary Medical History: Reports: Hx Pneumonia Denies: Hx Asthma, Hx Bronchitis, Hx COPD Neurological Medical History: Denies: Hx Cerebrovascular Accident, Hx Seizures Endocrine Medical History: Reports: Hx Diabetes Mellitus Type 2, Hx Hypothyroidism Renal/ Medical History: Denies: Hx Peritoneal Dialysis Musculoskeltal Medical History: Denies Hx Arthritis Past Surgical History: Reports: Hx Appendectomy, Hx Cholecystectomy, Hx Hysterectomy, Hx Orthopedic Surgery - toe, Hx Thyroid Surgery - thyroidectomy - Immunizations Hx Diphtheria, Pertussis, Tetanus Vaccination: Yes - 2011 Physical Exam - Vital signs Vitals: Temp Pulse Resp BP Pulse Ox 98.0 F 81 16 130/83 H 97 03/06/18 17:30 03/06/18 17:30 03/06/18 17:30 03/06/18 17:30 03/06/18 17:30 Course - Vital Signs Vital signs: Temp Pulse Resp BP Pulse Ox 98.0 F 81 16 130/83 H 97 03/06/18 17:30 03/06/18 17:30 03/06/18 17:30 03/06/18 17:30 03/06/18 17:30 Doctor's Discharge - Discharge Referrals: SIMI TELLEZ FNP [Primary Care Provider] - Follow up as needed
[2018-03-06 18:17] LABS: ABSOLUTE EOSINOPHILS # (AUTO) 0.1 10^3/uL (0.0-0.6); ABSOLUTE LYMPHOCYTES (AUTO) 2.1 10^3/uL (0.5-4.7); ABSOLUTE MONOCYTES (AUTO) 0.6 10^3/uL (0.1-1.4); ABSOLUTE NEUT (AUTO) 3.7 10^3/uL (1.7-8.2); BASOPHILS % (AUTO) 0.4 % (0-2); LYMPHOCYTES % (AUTO) 32.1 % (13-45); MEAN CORPUSCULAR HEMOGLOBIN 29.4 pg (27.0-33.4); MEAN CORPUSCULAR HGB CONC 34.8 g/dL (32.0-36.0); MEAN CORPUSCULAR VOLUME 85 fl (80-97); MONOCYTES % (AUTO) 8.8 % (3-13); PLATELET COUNT 292 10^3/uL (150-450); RED BLOOD COUNT 5.09 10^6/uL (3.72-5.28); RED CELL DISTRIBUTION WIDTH 12.8 % (11.5-14.0); SEGMENTED NEUTROPHILS % (AUTO) 56.7 % (42-78); TOTAL CELLS COUNTED % (AUTO) 100 %; WHITE BLOOD COUNT 6.6 10^3/uL (4.0-10.5)
[2018-03-06 18:35] LABS: ALANINE AMINOTRANSFERASE 41 U/L (9-52); ALBUMIN 4.2 g/dL (3.5-5.0); ALKALINE PHOSPHATASE 62 U/L (38-126); ANION GAP 12 (5-19); ASPARTATE AMINO TRANSFERASE 25 U/L (14-36); BILIRUBIN,DIRECT 0.3 mg/dL (0.0-0.4); BILIRUBIN,TOTAL 1.3 mg/dL (0.2-1.3); BLOOD UREA NITROGEN 20 mg/dL (7-20); CARBON DIOXIDE 20 mmol/L (22-30); CHLORIDE 105 mmol/L (98-107); CREATINE KINASE 55 U/L (30-135); GLUCOSE 105 mg/dL (75-110); SODIUM 137.1 mmol/L (137-145); TOTAL PROTEIN 6.4 g/dL (6.3-8.2)
[2018-03-06 18:36] LABS: POTASSIUM 4.2 mmol/L (3.6-5.0)
[2018-03-06 18:45] LABS: CREATINE KINASE MB 0.47 ng/mL (<4.55); TROPONIN I < 0.012 ng/mL
--- NOTE | 2018-03-06 19:01 | RADIOLOGY REPORT (SQ) ---
EXAM DESCRIPTION: CHEST SINGLE VIEW COMPLETED DATE/TIME: 03/06/2018 6:48 pm REASON FOR STUDY: Chest pain COMPARISON: 02/16/2018 TECHNIQUE: Single frontal radiographic view of the chest acquired. NUMBER OF VIEWS: One view. LIMITATIONS: None. FINDINGS: LUNGS AND PLEURA: No pneumothorax. No consolidation or pleural effusion. MEDIASTINUM AND HILAR STRUCTURES: Stable. HEART AND VASCULAR STRUCTURES: Stable. BONES: No acute findings. HARDWARE: None in the chest. OTHER: No other significant finding. IMPRESSION: NO ACUTE FINDINGS. TECHNICAL DOCUMENTATION: JOB ID: [id number] 2010 [employer]- All Rights Reserved Reading location - IP/workstation name: [employer]
--- NOTE | 2018-03-06 20:10 | ER Document Report ---
ED General - General Mode of Arrival: Ambulatory Information source: Patient TRAVEL OUTSIDE OF THE [place]. IN LAST 30 DAYS: No <RILEY CHOPRA - Last Filed: 03/07/18 00:41> <FABIAN VALDES - Last Filed: 03/07/18 00:42> - General Chief Complaint: Chest Pain Stated Complaint: CHEST DISCOMFORT Time Seen by Provider: 03/06/18 17:41 Notes: Patient is a 62 year old female with Type 2 diabetes, HTN, hyperlipidema and a history of a recent [place] () presents to the emergency department complaining of chest pain onset today. Patient states after doing laundry and taking groceries in her house she began to have chest pain. She describes the chest pain as "presence" located across her entire upper chest, further stating she notices her heart is there. She states the pain is relieved after sitting up and removing her bra. She reports taking 0.5 of Lorazepam around 12 PM this afternoon believing that her symptoms could be due to anxiety. She states she also has back pain just below her scapula and further reports some fatigue. Patient denies any cough, shortness of breath, or dizziness. Patient reports having an [place] in 2017 and being sent to [facility] where a catheterization was performed. The catheterization showed 40% blockage and no stents were placed. Patient described her chest pain at that time as an "heavy blanket". Patient reports currently being started on Jardiance approximately 1 week ago by her PCP, Dr. Penny. She further reports having an appointment for cardiac rehab next . (RILEY CHOPRA) - Related Data Allergies/Adverse Reactions: Iodinated Contrast- Oral and IV Dye [IV Dye, Iodine Containing] Allergy (Verifie d 03/06/18 17:19) levofloxacin [From Levaquin] Allergy (Verified 03/06/18 17:19) morphine Adverse Reaction (Verified 03/06/18 17:19) Nausea Past Medical History - General Information source: Patient - Social History Smoking Status: Never Smoker Cigarette use (# per day): No Chew tobacco use (# tins/day): No Smoking Education Provided: No Frequency of alcohol use: None Family History: Reviewed & Not Pertinent Patient has suicidal ideation: No Patient has homicidal ideation: No - Past Medical History Cardiac Medical History: Reports: Hx Heart Attack, Hx Hypertension Pulmonary Medical History: Reports: Hx Pneumonia Endocrine Medical History: Reports: Hx Diabetes Mellitus Type 2, Hx Hypothyroidism Past Surgical History: Reports: Hx Appendectomy, Hx Cholecystectomy, Hx Hysterectomy, Hx Orthopedic Surgery - toe, Hx Thyroid Surgery - thyroidectomy - Immunizations Hx Diphtheria, Pertussis, Tetanus Vaccination: Yes - 2011 <RILEY CHOPRA - Last Filed: 03/07/18 00:41> Review of Systems - Review of Systems Constitutional: No symptoms reported EENT: No symptoms reported Cardiovascular: See HPI, Chest pain Respiratory: No symptoms reported Gastrointestinal: No symptoms reported Genitourinary: No symptoms reported Female Genitourinary: No symptoms reported Musculoskeletal: See HPI, Back pain Skin: No symptoms reported Hematologic/Lymphatic: No symptoms reported Neurological/Psychological: No symptoms reported -: Yes All other systems reviewed and negative <RILEY CHOPRA - Last Filed: 03/07/18 00:41> Physical Exam <RILEY CHOPRA - Last Filed: 03/07/18 00:41> <FABIAN VALDES - Last Filed: 03/07/18 00:42> - Vital signs Vitals: Temp Pulse Resp BP Pulse Ox 98.0 F 81 16 130/83 H 97 03/06/18 17:30 03/06/18 17:30 03/06/18 17:30 03/06/18 17:30 03/06/18 17:30 - Notes Notes: GENERAL: Alert, interacts well. No acute distress. HEAD: Normocephalic, atraumatic. EYES: Pupils equal, round, and reactive to light. Extraocular movements intact. ENT: Oral mucosa moist, tongue midline. NECK: Full range of motion. Supple. Trachea midline. LUNGS: Clear to auscultation bilaterally, no wheezes, rales, or rhonchi. No respiratory distress. HEART: Regular rate and rhythm. No murmurs, gallops, or rubs. ABDOMEN: Soft, non-tender. Non-distended. Bowel sounds present in all 4 quadrants. EXTREMITIES: Moves all 4 extremities spontaneously. NEUROLOGICAL: Alert and oriented x3. Normal speech. PSYCH: Normal affect, normal mood. SKIN: Warm, dry, normal turgor. No rashes or lesions noted. (RILEY CHOPRA) Correction to scribe exam there is epigastric tenderness to palpation. No rashes are noted. (FABIAN VALDES) Course - Laboratory Result Diagrams: 03/06/18 17:57 03/06/18 17:57 <RILEY CHOPRA - Last Filed: 03/07/18 00:41> - Laboratory Result Diagrams: 03/06/18 17:57 03/06/18 17:57 <FABIAN VALDES - Last Filed: 03/07/18 00:42> - Re-evaluation Re-evalutation: 03/06/18 23:39 CBC unremarkable, CMP shows slightly low CO2 at 20 otherwise unremarkable, troponin negative x2 4 hours apart, lipase is mildly elevated at 479.6, chest x- ray shows no acute process. EKG is nonischemic. Discussed with patient that I think her low chest/epigastric abdominal pain that radiates to her back is coming from mild pancreatitis. Patient is status post cholecystectomy several years ago, I do not have any suspicious for retained stone. Discussed with patient that I do not think her pain is coming from her heart at this point. Patient will be discharged home, has been counseled on a low-fat diet, has been counseled regarding the fact that her Jardiance can cause pancreatitis and we will need to monitor this to make sure that it is not worsening. Patient will return for vomiting, fevers, worsening pain or any new or concerning symptoms. We also discussed that a mild elevation in the lipase could actually come from a duodenal ulcer, patient states she has not been eating much recently but is still taking all of her regular medications, patient can start taking Zantac 75 mg twice a day [id number]. (FABIAN VALDES) - Vital Signs Vital signs: Temp Pulse Resp BP Pulse Ox 98.0 F 81 15 108/76 95 03/06/18 17:30 03/06/18 17:30 03/06/18 23:39 03/06/18 23:39 03/06/18 23:39 - Laboratory Laboratory results interpreted by me: 03/06/18 03/06/18 17:57 17:57 Carbon Dioxide 20 L Lipase 479.6 H - EKG Interpretation by Me Additional EKG results interpreted by me: 03/06/18 23:46 EKG shows sinus rhythm at a rate of 83, left axis deviation, left anterior hemiblock, no ST segment elevations or depressions, no T wave inversions, poor R wave progression per my interpretation. (FABIAN VALDES) Discharge <RILEY CHOPRA - Last Filed: 03/07/18 00:41> <FABIAN VALDES - Last Filed: 03/07/18 00:42> - Discharge Clinical Impression: Pancreatitis Qualifiers: Chronicity: acute Pancreatitis type: drug induced Acute pancreatitis complication: no infection or necrosis Qualified Code(s): K85.30 - Drug induced acute pancreatitis without necrosis or infection Condition: Stable Disposition: HOME, SELF-CARE Additional Instructions: Pancreatitis Pancreatitis is an inflammation of the pancreas, an organ at the back of your abdomen. The pancreas produces insulin and enzymes that digest your food. Pancreatitis can be caused by gallstones in the bile duct, by alcohol or viruses, or by excess fat or calcium in the blood stream. Occasionally, pancreatitis occurs when a stomach ulcer cornejo through into the pancreas. We try to find the cause of pancreatitis, but some tests can't be done until the pa ncreas heals. The usual symptoms of pancreatitis are pain in the pit of the stomach that goes straight through to the back, vomiting, and low-grade fever. Severe cases require hospital admission, but many patients with mild pancreatitis do well at home. Sometimes we prescribe medicine to decrease stomach acid secretion and to decrease flow of pancreatic juices. Start with a diet of clear liquids (soda pop, juices). When the pain is decreasing, you can add some simple starches (potato, toast, applesauce). Avoid proteins and fats until you are completely painfree. When you're better, your doctor may suggest treatment to prevent future pancreatitis (such as gallbladder removal). Avoid alcohol forever. Get immediate treatment for any future episodes. Contact your doctor at once or return here if you have increasing pain, shortness of breath, general swelling, increasing size of the abdomen, continued vomiting, muscle spasms, or other new symptoms. Take Zantac (ranitidine) 75 mg by mouth twice a day. Low-Fat Diet The physician has recommended a low-fat diet. This diet is often used for gallbladder or pancreas problems. Your meals should be high-carbohydrate (potato, apples, noodles, breads, vegetables). Eat fish or skinless chicken (boiled or baked rather than fried) for protein. Beans and peas are good sources of fat-free protein. Soups are usually very low-fat. Don't eat anything fried. Avoid red meats. Avoid most dairy products. Skim milk and non-fat yogurt are OK. Most popular cheeses are very high-fat. Don't add butter or sauces -- use lemon or pepper instead. If you like salads, use one of the new "non-fat" dressings. "Fast Food" is "fat food." There is virtually nothing from a typical fast- food restaurant that you can eat. Fish patties and chicken nuggets are almost always deep-fat fried. "Special Sauces" are mostly fat. Referrals: SIMI TELLEZ FNP [NURSE PRACTITIONER] - Follow up as needed Scribe Attestation: 03/07/18 00:42 I personally performed the services described in the documentation, reviewed and edited the documentation which was dictated to the scribe in my presence, and it accurately records my words and actions. (FABIAN VALDES) Scribe Documentation - Scribe Written by Chela:: Chela Booth, 03/06/2018 20:14 acting as scribe for :: Brittaney <RILEY CHOPRA - Last Filed: 03/07/18 00:41>
--- NOTE | 2018-03-06 22:00 | EKG REPORT ---
SEVERITY:- ABNORMAL ECG - SINUS RHYTHM LEFT ANTERIOR FASCICULAR BLOCK BORDERLINE R WAVE PROGRESSION, ANTERIOR LEADS : Confirmed by: Mert Tapia MD 06-Mar-2018 21:59:27
[2018-03-06 23:45] VITALS: BP 108/76
== END 2018-03-07 | disposition home or self-care (01) ==
LOC: ER 17:18
DX: K85.30 Drug induced acute pancreatitis without necrosis or infection (principal); R07.9 Chest pain, unspecified; E11.9 Type 2 diabetes mellitus without complications; I10 Essential (primary) hypertension; E78.5 Hyperlipidemia, unspecified; I25.2 Old myocardial infarction; Z88.6 Allergy status to analgesic agent; Z90.710 Acquired absence of both cervix and uterus; Z90.49 Acquired absence of other specified parts of digestive tract
CPT/HCPCS: 36415; 71045; 80053; 82550; 82553; 83690; 84484; 85025; 93005; 93010; 99285

== ENCOUNTER → 2018-03-10 | Outpatient (CLI) | payer OTHER ==
--- NOTE | 2018-03-10 12:26 | RADIOLOGY REPORT (SQ) ---
EXAM DESCRIPTION: CT ABDOMEN IV CONTRAST ONLY COMPLETED DATE/TIME: 03/10/2018 10:13 am REASON FOR STUDY: ACUTE PANCREATITIS/DIARRHEA/GENRALIZED ABDOMINAL PAIN R10.84 GENERALIZED ABDOMINA L PAIN R19.7 DIARRHEA, UNSPECIFIED COMPARISON: 08/03/2007 TECHNIQUE: CT scan of the abdomen performed with intravenous and with oral contrast using helical sc anning technique with dynamic intravenous contrast injection. Images reviewed with lung, soft tissue, and bone windows. Reconstructed coronal and sagittal MPR images reviewed. Delayed images for evaluat ion of the urinary system also acquired and evaluated. All images stored on PACS. All CT scanners at this facility use dose modulation, iterative reconstruc tion, and/or weight based dosing when appropriate to reduce radiation dose to as low as reasonably ac hievable (ALARA). [facility]: Dose Right [facility]: CareDose [facility]: Dose Right [facility]: Teradose 4D [facility]: Axilica CONTRAST TYPE AND DOSE: contrast/concentration: Isovue 350.00 mg/ml; Total Contrast Delivered: 100.0 ml; Total Saline Delivered: 72.0 ml RENAL FUNCTION: Creatinine 0.8 RADIATION DOSE: CT Rad equipment meets quality standard of care and radiation dose reduction techniq ues were employed. CTDIvol: 17.4 - 18.7 mGy. DLP: 1210 mGy-cm. . LIMITATIONS: None. FINDINGS: LOWER CHEST: No significant findings. No nodules or infiltrates. LIVER: Normal size. No masses. No dilated ducts. SPLEEN: Normal size. No focal lesions. PANCREAS: No masses. No significant calcifications. No adjacent inflammation or peripancreatic fluid collections. Pancreatic duct not dilated. GALLBLADDER: Surgically absent. ADRENAL GLANDS: No significant masses or asymmetry. RIGHT KIDNEY AND URETER: No solid masses. Nonobstructing upper pole calculus. No hydronephrosis o r hydroureter. LEFT KIDNEY AND URETER: No solid masses. No significant calcifications. No hydronephrosis or hydr oureter. AORTA AND VESSELS: No aneurysm. No dissection. Renal arteries, SMA, celiac without stenosis. RETROPERITONEUM: No retroperitoneal adenopathy, hemorrhage or masses. BOWEL AND PERITONEAL CAVITY: No masses or inflammatory changes. No free fluid or peritoneal masses. APPENDIX: Not identified. ABDOMINAL WALL: No masses. No hernias. BONES: No significant or acute findings. OTHER: No other significant finding. IMPRESSION: There are no findings of acute pancreatitis at this time. There is a nonobstructing int rarenal calculus on the right. TECHNICAL DOCUMENTATION: JOB ID: [id number] Quality ID # [id number]: Final reports with documentation of one or more dose reduction techniques (e.g., Au tomated exposure control, adjustment of the mA and/or kV according to patient size, use of iterative reconstruction technique) 2010 [employer]- All Rights Reserved Reading location - IP/workstation name: [email or web address]
== END ==
LOC: RAD 03-09 15:03
PROVIDERS: ATTEND Physician Assistant
DX: K85.90 Acute pancreatitis without necrosis or infection, unspecified (principal); R10.84 Generalized abdominal pain; R19.7 Diarrhea, unspecified
CPT/HCPCS: 74160; 82565

== ENCOUNTER 2018-04-09 20:32 | Observation (INO) | payer OTHER ==
--- NOTE | 2018-04-09 21:21 | EKG REPORT ---
SEVERITY:- ABNORMAL ECG - SINUS RHYTHM INCOMPLETE RBBB AND LAFB BORDERLINE R WAVE PROGRESSION, ANTERIOR LEADS : Confirmed by: Sejal Ramirez MD 09-Apr-2018 21:20:29
[2018-04-09] MEDS ORDERED: ASPIRIN 81 MG TABLET, CHEWABLE PO ONE (22:04)
[2018-04-09 22:25] LABS: ABSOLUTE LYMPHOCYTES (AUTO) 1.8 10^3/uL (0.5-4.7); ABSOLUTE MONOCYTES (AUTO) 0.5 10^3/uL (0.1-1.4); ABSOLUTE NEUT (AUTO) 2.4 10^3/uL (1.7-8.2); BASOPHILS % (AUTO) 0.3 % (0-2); EOSINOPHILS % (AUTO) 0.8 % (0-6); HEMATOCRIT 40.4 % (36.0-47.0); LYMPHOCYTES % (AUTO) 38.1 % (13-45); MEAN CORPUSCULAR HEMOGLOBIN 30.7 pg (27.0-33.4); MEAN CORPUSCULAR HGB CONC 34.7 g/dL (32.0-36.0); MEAN CORPUSCULAR VOLUME 89 fl (80-97); MONOCYTES % (AUTO) 10.6 % (3-13); PLATELET COUNT 254 10^3/uL (150-450); RED BLOOD COUNT 4.56 10^6/uL (3.72-5.28); RED CELL DISTRIBUTION WIDTH 14.4 % (11.5-14.0); SEGMENTED NEUTROPHILS % (AUTO) 50.2 % (42-78); TOTAL CELLS COUNTED % (AUTO) 100 %; WHITE BLOOD COUNT 4.8 10^3/uL (4.0-10.5)
[2018-04-09 22:35] LABS: INTERNATIONAL RATION (INR) 0.94
--- NOTE | 2018-04-09 22:42 | RADIOLOGY REPORT (SQ) ---
XR CHEST 1 VIEW HISTORY: CP. COMPARISON: 03/06/2018 FINDINGS: The heart size is normal. The lungs are clear. No pleural effusions or pneumothorax is seen. No acute bony findings. IMPRESSION: No evidence of acute cardiopulmonary disease.
[2018-04-09 22:44] LABS: ALANINE AMINOTRANSFERASE 41 U/L (9-52); ALKALINE PHOSPHATASE 52 U/L (38-126); ANION GAP 10 (5-19); ASPARTATE AMINO TRANSFERASE 24 U/L (14-36); BILIRUBIN,TOTAL 1.7 mg/dL (0.2-1.3); BLOOD UREA NITROGEN 15 mg/dL (7-20); CALCIUM 9.8 mg/dL (8.4-10.2); CARBON DIOXIDE 25 mmol/L (22-30); CHLORIDE 102 mmol/L (98-107); CREATINE KINASE 85 U/L (30-135); GLUCOSE 127 mg/dL (75-110); LIPASE 258.3 U/L (23-300); POTASSIUM 3.8 mmol/L (3.6-5.0); SODIUM 137.3 mmol/L (137-145); TOTAL PROTEIN 5.9 g/dL (6.3-8.2)
[2018-04-09 22:55] LABS: CREATINE KINASE MB 0.79 ng/mL (<4.55); TROPONIN I < 0.012 ng/mL
[2018-04-09] MEDS ORDERED: NORMAL SALINE 1000 ML 1,000 ML IV ONE (23:53)
--- NOTE | 2018-04-10 00:30 | ER Document Report ---
ED General - General Chief Complaint: Chest Pain > 30 Stated Complaint: CHEST PAIN Time Seen by Provider: 04/09/18 22:04 Notes: Patient is a 62-year-old female presents to the emergency department for generalized chest tightness and burning sensation. Patient was seen at this facility on 02/12/2018 diagnosed with an an STEMI and transferred to [facility]. Patient states at that point time she did have a cardiac catheterization which showed 30% blockage in 2 of her vessels and 40% blockage in 1 of her vessels. Patient states she was treated with multiple different medications while admitted and then was inevitably discharged home. Patient states she started cardiac rehabilitation on 03/18/2018. States today around 1530 hrs. this af ternoon she was walking on the treadmill which is her normal. States she feels as though she is very diaphoretic and got lightheaded. States staff at cardiac rehab did get her blood pressure and it was 70/47. [facility] nursing facility did call her loan documents closer Dr. Jose but were unable to talk to him. States they talked to a physician car rental sales assistant in the office who recommend having the patient go to the emergency room. Patient states at that point in time she was having some chest tightness but states the staff inevitably was making her laugh and she did not feel as though she needed to go to the emergency department so she went home. Patient states she feels as though she was dehydrated at that time. Patient states around 1830 hrs. this afternoon when her got home from work she again felt a tightness and burning sensation in the center of her chest. States she did take 1 of her Ativan because she states her loan documents closer Dr. Messer told her the burning sensation was not her heart was likely her anxiety. Patient states she then presents to the emergency room. Patient denies taking any home nitroglycerin. State upon arrival to the emergency room she did have chest tightness/burning sensation on the right side but is currently chest tightness, pain, burning sensation free. Past medical history: Coronary artery disease, hyperlipidemia, hypertension, diabetes, hypothyroid, pancreatitis, anxiety Medications: Nitroglycerin, Ativan, lisinopril, atorvastatin, metoprolol, aspirin, isosorbide, levothyroxine Allergies: Demerol, morphine, Levaquin Surgical history: Cholecystectomy TRAVEL OUTSIDE OF THE [place] IN LAST 30 DAYS: No - Related Data Allergies/Adverse Reactions: Iodinated Contrast- Oral and IV Dye [IV Dye, Iodine Containing] Allergy (Verified 04/09/18 22:08) levofloxacin [From Levaquin] Allergy (Verified 04/09/18 22:08) morphine Adverse Reaction (Verified 04/09/18 22:08) Nausea Past Medical History - General Information source: Patient - Social History Smoking Status: Never Smoker Frequency of alcohol use: None Drug Abuse: None Family History: Reviewed & Not Pertinent Patient has suicidal ideation: No Patient has homicidal ideation: No - Past Medical History Cardiac Medical History: Reports: Hx Heart Attack, Hx Hypertension Denies: Hx Coronary Artery Disease Pulmonary Medical History: Reports: Hx Pneumonia Denies: Hx Asthma, Hx Bronchitis, Hx COPD Neurological Medical History: Denies: Hx Cerebrovascular Accident, Hx Seizures Endocrine Medical History: Reports: Hx Diabetes Mellitus Type 2, Hx Hypothyroidism Renal/ Medical History: Denies: Hx Peritoneal Dialysis Musculoskeletal Medical History: Denies Hx Arthritis Past Surgical History: Reports: Hx Appendectomy, Hx Cholecystectomy, Hx Hysterectomy, Hx Orthopedic Surgery - toe, Hx Thyroid Surgery - thyroidectomy - Immunizations Hx Diphtheria, Pertussis, Tetanus Vaccination: Yes - 2011 Review of Systems - Review of Systems Constitutional: See HPI EENT: No symptoms reported Cardiovascular: See HPI Respiratory: See HPI Gastrointestinal: No symptoms reported Genitourinary: No symptoms reported Female Genitourinary: No symptoms reported Musculoskeletal: No symptoms reported Skin: No symptoms reported Hematologic/Lymphatic: No symptoms reported Neurological/Psychological: See HPI Physical Exam - Vital signs Vitals: Temp Pulse Resp BP Pulse Ox 98.8 F 89 16 120/60 98 04/09/18 21:03 04/09/18 21:03 04/09/18 21:03 04/09/18 21:03 04/09/18 21:03 - Notes Notes: GENERAL: Alert, interacts well. No acute distress. HEAD: Normocephalic, atraumatic. EYES: Pupils equal, round, and reactive to light. Extraocular movements intact. ENT: Oral mucosa moist, tongue midline. NECK: Full range of motion. Supple. Trachea midline. LUNGS: Clear to auscultation bilaterally, no wheezes, rales, or rhonchi. No res piratory distress. HEART: Regular rate and rhythm. No murmur ABDOMEN: Soft, non-tender. Non-distended. Bowel sounds present in all 4 quadrants. EXTREMITIES: Moves all 4 extremities spontaneously. No edema, normal radial and dorsalis pedis pulses bilaterally. No cyanosis. BACK: no cervical, thoracic, lumbar midline tenderness. No saddle anesthesia, normal distal neurovascular exam. NEUROLOGICAL: Alert and oriented x3. Normal speech. cranial nerves II through XII grossly intact PSYCH: Normal affect, normal mood. SKIN: Warm, dry, normal turgor. No rashes or lesions noted. Course - Re-evaluation Re-evalutation: 04/10/18 01:58 Patient's labs showed no signs of leukocytosis, no signs of anemia, no signs of electrolyte abnormalities, patient's initial troponin was negative in the emergency room. Patient's chest x-ray also shows no signs of pneumonia, pneumothorax, rib fracture. Patient's initial EKG shows a heart rhythm of 81 sinus rhythm, QTc 465 with an incomplete right bundle branch block. No ST segment elevations or depressions noted. Discussed this case with hospitalist Dr. Sargent who agrees with admission to the hospital for chest pain rule out. Patient continues to deny any chest pain at this time. - Vital Signs Vital signs: Temp Pulse Resp BP Pulse Ox 98.8 F 89 15 136/75 H 98 04/09/18 21:03 04/09/18 21:03 04/10/18 01:01 04/10/18 01:01 04/10/18 01:01 - Laboratory Result Diagrams: 04/09/18 22:10 04/09/18 22:10 Laboratory results interpreted by me: 04/09/18 04/09/18 22:10 22:10 RDW 14.4 H Glucose 127 H Total Bilirubin 1.7 H Total Protein 5.9 L Discharge - Discharge Clinical Impression: Chest pain Qualifiers: Chest pain type: unspecified Qualified Code(s): R07.9 - Chest pain, unspecified Condition: Stable Disposition: ADMITTED OBSERVATION Admitting Provider: Hospitalist - Dr. Sargent Unit Admitted: Telemetry
[2018-04-10] MEDS ORDERED: LORAZEPAM 0.5 MG TABLET PO PRN ×2 (03:19→09:00)
[2018-04-10] MEDS ORDERED: DEXTROSE 40% GEL 15 GM TUBE PO PRN ×2 (03:20)
[2018-04-10] MEDS ORDERED: GLUCAGON,HUMAN RECOMB 1 MG INJ IM PRN (03:20)
[2018-04-10] MEDS ORDERED: DEXTROSE 50%-WATER 25 GM/50 ML DISP.SYRIN IV PRN ×2 (03:20)
--- NOTE | 2018-04-10 04:26 | PDOC H&P ---
History of Present Illness Admission Date/PCP: 04/10/18 01:05 RAMIREZ CHEN MD Patient complains of: Single episode of hypotension and shortness of breath History of Present Illness: RADHA ORTEGA is a 62 year old female with a past medical history of hypertension, dyslipidemia, coronary artery disease and anxiety. Patient had cardiac catheterization 2 months ago at [facility] in [place] mid January 2018 finding 30-40% blockage which was not stented. Patient follows up with veneer taping machine offbearer Dr. Jose in [place] and has had several episodes of atypical chest pain following her procedure. Today the patient presents after an episode of hypotension at cardiac rehab following 30 minutes on a treadmill. She had lightheadedness but no chest pain shortness of breath nausea vomiting. She felt well and returned home and was plagued by doubts of her cardiac health. She experienced brief non-positional shortness of breath prompting her to take Ativan which did not alleviate her symptoms and so sought evaluation in the emergency room. She did not have chest pain, palpitations, nausea vomiting or diaphoresis. In the emergency room she has an unremarkable workup including serial cardiac enzymes x2. She is referred to the hospitalist for observation. Past Medical History Cardiac Medical History: Reports: Myocardial Infarction, Hypertension Denies: Coronary Artery Disease Pulmonary Medical History: Reports: Pneumonia Denies: Asthma, Bronchitis, Chronic Obstructive Pulmonary Disease (COPD) Neurological Medical History: Reports: None Denies: Seizures Endocrine Medical History: Reports: Diabetes Mellitus Type 2, Hypothyroidism Renal/ Medical History: Reports: None Malignancy Medical History: Reports: None Musculoskeltal Medical History: Denies: Arthritis Psychiatric Medical History: Reports: General Anxiety Disorder Traumatic Medical History: Reports: None Hematology: Reports: None Denies: Anemia Infectious Medical History: Reports: None Past Surgical History Past Surgical History: Reports: Appendectomy, Cholecystectomy, Hysterectomy, Orthopedic Surgery - toe Social History Information Source: Patient, Emergency Med Personnel Lives with: Spouse/Significant other Smoking Status: Never Smoker Frequency of Alcohol Use: None Drugs: None - Advance Directive Resuscitation Status: Full Code Family History Family History: CAD, Hypertension, Malignancy Parental Family History Reviewed: Yes Children Family History Reviewed: Yes Sibling(s) Family History Reviewed.: Yes Medication/Allergy Home Medications: Levothyroxine Sodium [Synthroid] 125 mcg PO Q6AM 02/11/18 Aspirin [Aspirin 81 mg Chewable Tablet] 81 mg PO DAILY 02/16/18 Atorvastatin Calcium [Lipitor 80 mg Tablet] 80 mg PO QHS 02/16/18 Lorazepam [Ativan 0.5 mg Tablet] 0.5 mg PO Q12H PRN #6 tab 02/16/18 Ticagrelor [Brilinta 90 mg Tablet] 1 tab PO BID 02/16/18 Bupropion HCl [Wellbutrin Sr 150 mg Tablet] 150 mg PO DAILY 04/09/18 Empagliflozin [Jardiance] 25 mg PO DAILY 04/09/18 Ezetimibe [Zetia] 10 mg PO QHS 04/09/18 Isosorbide Mononitrate [Imdur 30 mg Tablet.er] 30 mg PO DAILY 04/09/18 Metoprolol Succinate [Toprol Xl] 25 mg PO DAILY 04/09/18 Allergies/Adverse Reactions: Iodinated Contrast- Oral and IV Dye [IV Dye, Iodine Containing] Allergy (German ified 04/09/18 22:08) levofloxacin [From Levaquin] Allergy (Verified 04/09/18 22:08) morphine Adverse Reaction (Verified 04/09/18 22:08) Nausea Review of Systems Constitutional: ABSENT: chills, fever(s), headache(s), weight gain, weight loss Eyes: ABSENT: visual disturbances Ears: ABSENT: hearing changes Cardiovascular: ABSENT: chest pain, dyspnea on exertion, edema, orthropnea, palpitations Respiratory: ABSENT: cough, hemoptysis Gastrointestinal: ABSENT: abdominal pain, constipation, diarrhea, hematemesis, hematochezia, nausea, vomiting Genitourinary: ABSENT: dysuria, hematuria Musculoskeletal: ABSENT: joint swelling Integumentary: ABSENT: rash, wounds Neurological: ABSENT: abnormal gait, abnormal speech, confusion, dizziness, focal weakness, syncope Psychiatric: ABSENT: anxiety, depression, homidical ideation, suicidal ideation Endocrine: ABSENT: cold intolerance, heat intolerance, polydipsia, polyuria Hematologic/Lymphatic: ABSENT: easy bleeding, easy bruising Physical Exam Vital Signs: Temp Pulse Resp BP Pulse Ox 98.8 F 89 9 L 124/75 99 04/09/18 21:03 04/09/18 21:03 04/10/18 03:01 04/10/18 03:00 04/10/18 03:31 Intake & Output 04/08/18 04/09/18 04/10/18 11:59 11:59 11:59 Intake Total 1000 Balance 1000 Weight 86.5 kg General appearance: PRESENT: no acute distress, well-developed, well-nourished Head exam: PRESENT: atraumatic, normocephalic Eye exam: PRESENT: conjunctiva pink, EOMI, PERRLA. ABSENT: scleral icterus Ear exam: PRESENT: normal external ear exam Mouth exam: PRESENT: moist, tongue midline Neck exam: ABSENT: carotid bruit, JVD, lymphadenopathy, thyromegaly Respiratory exam: PRESENT: clear to auscultation maxine. ABSENT: rales, rhonchi, wheezes Cardiovascular exam: PRESENT: RRR. ABSENT: diastolic murmur, rubs, systolic murmur Pulses: PRESENT: normal dorsalis pedis pul Vascular exam: PRESENT: normal capillary refill GI/Abdominal exam: PRESENT: normal bowel sounds, soft. ABSENT: distended, guarding, mass, organolmegaly, rebound, tenderness Rectal exam: PRESENT: deferred Extremities exam: PRESENT: full ROM. ABSENT: calf tenderness, clubbing, pedal edema Neurological exam: PRESENT: alert, awake, oriented to person, oriented to place, oriented to time, oriented to situation, CN II-XII grossly intact. ABSENT: motor sensory deficit Psychiatric exam: PRESENT: appropriate affect, normal mood. ABSENT: homicidal ideation, suicidal ideation Skin exam: PRESENT: dry, intact, warm. ABSENT: cyanosis, rash Results Laboratory Results: 04/09/18 22:10 04/09/18 22:10 04/09/18 04/09/18 22:10 22:10 WBC 4.8 RBC 4.56 Hgb 14.0 Hct 40.4 MCV 89 MCH 30.7 MCHC 34.7 RDW 14.4 H Plt Count 254 Seg Neutrophils % 50.2 Lymphocytes % 38.1 Monocytes % 10.6 Eosinophils % 0.8 Basophils % 0.3 Absolute Neutrophils 2.4 Absolute Lymphocytes 1.8 Absolute Monocytes 0.5 Absolute Eosinophils 0.0 Absolute Basophils 0.0 Sodium 137.3 Potassium 3.8 Chloride 102 Carbon Dioxide 25 Anion Gap 10 BUN 15 Creatinine 0.67 Est GFR ( Amer) > 60 Est GFR (Non-Af Amer) > 60 Glucose 127 H Calcium 9.8 Total Bilirubin 1.7 H AST 24 ALT 41 Alkaline Phosphatase 52 Total Protein 5.9 L Albumin 4.0 Lipase 258.3 04/09/18 04/09/18 04/10/18 22:10 22:10 02:01 Creatine Kinase 85 CK-MB (CK-2) 0.79 Troponin I < 0.012 Cancelled 04/10/18 04/10/18 04/10/18 02:35 02:35 02:35 Creatine Kinase 72 CK-MB (CK-2) 0.64 Troponin I < 0.012 Cancelled Impressions: Chest X-Ray 04/09/18 22:04 IMPRESSION: No evidence of acute cardiopulmonary disease. Assessment & Plan - Diagnosis (1) Atypical chest pain Is this a current diagnosis for this admission?: Yes Plan: Atypical chest pain though the patient's pain is atypical there are multiple risk factors for coronary artery disease and subsequently will observe and evaluation of acute coronary syndrome versus coronary artery disease with anginal equivalents. Cardiac monitoring blood pressure Q6 hours , repeat cardiac enzymes in 6 hours. Follow-up consult with patient's veneer taping machine offbearer Dr. Messer at [facility] (2) Diabetes mellitus Qualifiers: Diabetes mellitus type: type 2 Diabetes mellitus long term care phlebotomist insulin use: without long term care phlebotomist use Diabetes mellitus complication status: without complication Qualified Code(s): E11.9 - Type 2 diabetes mellitus without complications Is this a current diagnosis for this admission?: Yes Plan: Obtain medication reconciliation, sliding scale insulin ordered (3) Anxiety Is this a current diagnosis for this admission?: Yes Plan: Outpatient regiment, reassurance, consider additional trazodone - Time Time Spent: 50 to 70 Minutes - Inpatient Certification Medical Necessity: Need Close Monitoring Due to Risk of Patient Decompensation
[2018-04-10] MEDS ORDERED: LEVOTHYROXINE SODIUM 0.025 MG TABLET PO SCH (06:00)
[2018-04-10] MEDS ORDERED: LEVOTHYROXINE SODIUM 0.1 MG TABLET PO SCH (06:00)
[2018-04-10] MEDS ORDERED: HEPARIN SOD (PORCINE) 5,000 UNIT/ML 1 ML SYRINGE SUBCUT SCH (06:00)
[2018-04-10] MEDS ORDERED: BUPROPION HCL 75 MG TABLET PO SCH (10:00)
[2018-04-10] MEDS ORDERED: METOPROLOL SUCCINATE 25 MG TAB.SR.24H PO SCH (10:00)
[2018-04-10] MEDS ORDERED: ISOSORBIDE MONONITRATE 30 MG TAB.ER.24H PO SCH (10:00)
[2018-04-10] MEDS ORDERED: ASPIRIN 81 MG TABLET, CHEWABLE PO SCH (10:00)
[2018-04-10] MEDS: INSULIN LISPRO 100 UNIT/ML 3 ML VIAL SUBCUT SCH ×2 (10:55→13:16)
[2018-04-10 13:02] VITALS: BP 120/71
--- NOTE | 2018-04-10 13:29 | PDOC DISCHARGE SUMMARY ---
General - Admit/Disc Date/PCP Admission Date/Primary Care Provider: 04/10/18 01:05 RAMIREZ CHEN MD Discharge Date: 04/10/18 - Discharge Diagnosis (1) Atypical chest pain Is this a current diagnosis for this admission?: Yes (2) Coronary artery disease Is this a current diagnosis for this admission?: Yes (3) Type 2 diabetes mellitus Is this a current diagnosis for this admission?: Yes (4) Anxiety Is this a current diagnosis for this admission?: Yes - Additional Information Resuscitation Status: Full Code Home Medications: Levothyroxine Sodium [Synthroid] 125 mcg PO Q6AM 02/11/18 Aspirin [Aspirin 81 mg Chewable Tablet] 81 mg PO DAILY 02/16/18 Atorvastatin Calcium [Lipitor 80 mg Tablet] 80 mg PO QHS 02/16/18 Ticagrelor [Brilinta 90 mg Tablet] 90 mg PO BID 02/16/18 Bupropion HCl [Wellbutrin Sr 150 mg Tablet] 150 mg PO DAILY 04/09/18 Empagliflozin [Jardiance] 25 mg PO DAILY 04/09/18 Ezetimibe [Zetia] 10 mg PO QHS 04/09/18 Isosorbide Mononitrate [Imdur 30 mg Tablet.er] 30 mg PO DAILY 04/09/18 Metoprolol Succinate [Toprol Xl] 25 mg PO DAILY 04/09/18 Lisinopril [Prinivil 5 mg Tablet] 5 mg PO DAILY 04/10/18 Lorazepam [Ativan 0.5 mg Tablet] 0.5 mg PO Q12HP PRN 04/10/18 Nitroglycerin [Nitrostat 0.4 mg (1/150 Gr) Tabs 25/Bottle] 1 tab SL Q5MP PRN 04/10/18 History of Present Illness History of Present Illness: RADHA ORTEGA is a 62 year old female with a past medical history of hypertension, dyslipidemia, coronary artery disease and anxiety. Patient had cardiac catheterization 2 months ago at [facility] in [place] mid January 2018 finding 30-40% blockage which was not stented. Patient follows up with assistant speech language pathologist Dr. Jose in [place] and has had several episodes of atypical chest pain following her procedure. Today the patient presents after an episode of hypotension at cardiac rehab following 30 minutes on a treadmill. She had lightheadedness but no chest pain shortness of breath nausea vomiting. She felt well and returned home and was plagued by doubts of her cardiac health. She experienced brief non-positional shortness of breath prompting her to take Ativan which did not alleviate her symptoms and so sought evaluation in the emergency room. She did not have chest pain, palpitations, nausea vomiting or diaphoresis. In the emergency room she has an unremarkable workup including serial cardiac enzymes x2. She is referred to the hospitalist for observation. Hospital Course Hospital Course: Ms. Ortega is a very pleasant 62 years old female patient presented with chief complaint of shortness of breath, palpitation and diaphoresis while she is working on treadmill. Since patient has some risk factors for acute coronary syndrome she is admitted for observation. Her 3 sets of cardiac enzymes are negative no EKG changes and patient remained chest pain free. Since we are not able to do cardiac stress test until Thursday patient is going to be discharged and have outpatient cardiac stress test with her assistant speech language pathologist. Told me she has upcoming appointment with Dr. Messer who is his primary assistant speech language pathologist coming . Her vitals and clinically patient stable and she is going to be discharged. Physical Exam Vital Signs: Temp Pulse Resp BP Pulse Ox 98.2 F 66 18 120/71 97 04/10/18 12:00 04/10/18 12:00 04/10/18 12:00 04/10/18 12:00 04/10/18 12:00 Intake & Output 04/09/18 04/10/18 04/11/18 06:59 06:59 06:59 Intake Total 1450 Balance 1450 Weight 88.2 kg General appearance: PRESENT: no acute distress, well-developed, well-nourished Head exam: PRESENT: atraumatic, normocephalic Eye exam: PRESENT: conjunctiva pink, EOMI, PERRLA. ABSENT: scleral icterus Ear exam: PRESENT: normal external ear exam Mouth exam: PRESENT: moist, tongue midline Neck exam: ABSENT: carotid bruit, JVD, lymphadenopathy, thyromegaly Respiratory exam: PRESENT: clear to auscultation maxine. ABSENT: rales, rhonchi, wheezes Cardiovascular exam: PRESENT: RRR. ABSENT: diastolic murmur, rubs, systolic murmur Pulses: PRESENT: normal dorsalis pedis pul Vascular exam: PRESENT: normal capillary refill GI/Abdominal exam: PRESENT: normal bowel sounds, soft. ABSENT: distended, guard ing, mass, organolmegaly, rebound, tenderness Rectal exam: PRESENT: deferred Extremities exam: PRESENT: full ROM. ABSENT: calf tenderness, clubbing, pedal edema Neurological exam: PRESENT: alert, awake, oriented to person, oriented to place, oriented to time, oriented to situation, CN II-XII grossly intact. ABSENT: motor sensory deficit Psychiatric exam: PRESENT: appropriate affect, normal mood. ABSENT: homicidal ideation, suicidal ideation Skin exam: PRESENT: dry, intact, warm. ABSENT: cyanosis, rash Results Laboratory Results: 04/09/18 22:10 04/09/18 22:10 04/09/18 04/09/18 22:10 22:10 WBC 4.8 RBC 4.56 Hgb 14.0 Hct 40.4 MCV 89 MCH 30.7 MCHC 34.7 RDW 14.4 H Plt Count 254 Seg Neutrophils % 50.2 Lymphocytes % 38.1 Monocytes % 10.6 Eosinophils % 0.8 Basophils % 0.3 Absolute Neutrophils 2.4 Absolute Lymphocytes 1.8 Absolute Monocytes 0.5 Absolute Eosinophils 0.0 Absolute Basophils 0.0 Sodium 137.3 Potassium 3.8 Chloride 102 Carbon Dioxide 25 Anion Gap 10 BUN 15 Creatinine 0.67 Est GFR ( Amer) > 60 Est GFR (Non-Af Amer) > 60 Glucose 127 H Calcium 9.8 Total Bilirubin 1.7 H AST 24 ALT 41 Alkaline Phosphatase 52 Total Protein 5.9 L Albumin 4.0 Lipase 258.3 04/09/18 04/09/18 04/10/18 22:10 22:10 02:01 Creatine Kinase 85 CK-MB (CK-2) 0.79 Troponin I < 0.012 Cancelled 04/10/18 04/10/18 04/10/18 02:35 02:35 02:35 Creatine Kinase 72 CK-MB (CK-2) 0.64 Troponin I < 0.012 Cancelled 04/10/18 08:13 Creatine Kinase CK-MB (CK-2) Troponin I < 0.012 Impressions: Chest X-Ray 04/09/18 22:04 IMPRESSION: No evidence of acute cardiopulmonary disease. Qualifiers - * PATIENT BEING DISCHARGED WITH ANY OF THE FOLLOWING DIAGNOSIS: No
[2018-04-10] MEDS ORDERED: EZETIMIBE 10 MG TABLET PO SCH (22:00)
[2018-04-10] MEDS ORDERED: ATORVASTATIN CALCIUM 80 MG TABLET PO SCH (22:00)
== END 2018-04-10 14:27 | disposition home or self-care (01) ==
LOC: ER 20:32 → EH 04-10 01:05 → 5 04-10 04:06
PROVIDERS: ADMIT Internal Medicine; ATTEND Internal Medicine
DX: R07.89 Other chest pain (principal); I25.10 Atherosclerotic heart disease of native coronary artery without angina pectoris; E11.9 Type 2 diabetes mellitus without complications; F41.1 Generalized anxiety disorder; E78.5 Hyperlipidemia, unspecified; I10 Essential (primary) hypertension; I95.9 Hypotension, unspecified; R42 Dizziness and giddiness; R06.02 Shortness of breath; E03.9 Hypothyroidism, unspecified; I25.2 Old myocardial infarction; I45.10 Unspecified right bundle-branch block; Z79.82 Long term (current) use of aspirin; Z79.899 Other long term (current) drug therapy; Z90.49 Acquired absence of other specified parts of digestive tract; Z82.49 Family history of ischemic heart disease and other diseases of the circulatory system; Z87.19 Personal history of other diseases of the digestive system
CPT/HCPCS: 93005; 99285; 96360; 36415 ×2; 82553 ×2; 82962; 82550 ×2; 83690; 85025; 85610; 80053; 84484 ×2; 71045; 93010; J1644; J7030

== ENCOUNTER 2018-06-10 08:20 | Emergency (ER) | payer OTHER ==
--- NOTE | 2018-06-10 09:23 | ER Document Report ---
ED Medical Screen (RME) - General Chief Complaint: Nausea/Vomiting Stated Complaint: VOMITING Time Seen by Provider: 06/10/18 09:21 Primary Care Provider: RAMIREZ CHEN MD [Primary Care Provider] - Follow up as needed Mode of Arrival: Ambulatory Information source: Patient Notes: 62-year-old female presented to ED for complaint of abdominal cramping nausea v omiting and diarrhea since yesterday. She states she has had emesis every 30-45 minutes since last night too many to count. She states she has had at least 4 5 diarrhea stools that are now down to nothing but yellow liquid. She states she had a fever when she first started but she did not take her temp does not know exactly how high but does not have a fever now. She states her whole abdomen h urts because of the cramping and soreness but does not any point tenderness at this time. Patient does have a history of a heart attack in January she had a hysterectomy gallbladder appendix thyroid and surgery on her toe. She does not smoke drink or do any kind of drugs. She is alert oriented respirations regular and unlabored lungs are clear to auscultation does have hypoactive bowel sounds and is in a lot of discomfort. Will treat with IV fluids get labs treat with IV Zofran and have seen by 1 of the providers in the back. I have greeted and performed a rapid initial assessment of this patient. A comprehensive ED assessment and evaluation of the patient, analysis of test results and completion of medical decision making process will be conducted by an additional ED providers. TRAVEL OUTSIDE OF THE [place] IN LAST 30 DAYS: No - Related Data Allergies/Adverse Reactions: Iodinated Contrast- Oral and IV Dye [IV Dye, Iodine Containing] Allergy (Verified 06/10/18 08:22) levofloxacin [From Levaquin] Allergy (Verified 06/10/18 08:22) morphine Adverse Reaction (Verified 06/10/18 08:22) Nausea Past Medical History - Past Medical History Cardiac Medical History: Reports: Hx Heart Attack, Hx Hypertension Denies: Hx Coronary Artery Disease Pulmonary Medical History: Reports: Hx Pneumonia Denies: Hx Asthma, Hx Bronchitis, Hx COPD Neurological Medical History: Denies: Hx Cerebrovascular Accident, Hx Seizures Endocrine Medical History: Reports: Hx Diabetes Mellitus Type 2, Hx Hypothyroidism Renal/ Medical History: Denies: Hx Peritoneal Dialysis Musculoskeltal Medical History: Denies Hx Arthritis Past Surgical History: Reports: Hx Appendectomy, Hx Cholecystectomy, Hx Hysterectomy, Hx Orthopedic Surgery - toe, Hx Thyroid Surgery - thyroidectomy - Immunizations Hx Diphtheria, Pertussis, Tetanus Vaccination: Yes - 2011 Physical Exam - Vital signs Vitals: Temp Pulse Resp BP Pulse Ox 99.2 F 111 H 16 126/75 H 98 06/10/18 08:25 06/10/18 08:25 06/10/18 08:25 06/10/18 08:25 06/10/18 08:25 Course - Vital Signs Vital signs: Temp Pulse Resp BP Pulse Ox 99.2 F 111 H 16 126/75 H 98 06/10/18 08:25 06/10/18 08:25 06/10/18 08:25 06/10/18 08:25 06/10/18 08:25 Doctor's Discharge - Discharge Referrals: RAMIREZ CHEN MD [Primary Care Provider] - Follow up as needed
[2018-06-10] MEDS ORDERED: ONDANSETRON HCL INJ/PF 4 MG/2 ML SDV IV ONE (09:24)
[2018-06-10] MEDS ORDERED: NORMAL SALINE 1000 ML 1,000 ML IV ONE (09:24)
[2018-06-10 10:33] LABS: HEMATOCRIT 49.4 % (36.0-47.0); HEMOGLOBIN 16.9 g/dL (12.0-15.5); MEAN CORPUSCULAR HEMOGLOBIN 30.7 pg (27.0-33.4); MEAN CORPUSCULAR HGB CONC 34.2 g/dL (32.0-36.0); MEAN CORPUSCULAR VOLUME 90 fl (80-97); PLATELET COUNT 255 10^3/uL (150-450); RED CELL DISTRIBUTION WIDTH 12.6 % (11.5-14.0); WHITE BLOOD COUNT 7.6 10^3/uL (4.0-10.5)
[2018-06-10 10:38] LABS: APPEARANCE,URINE CLEAR; BILIRUBIN,URINE NEGATIVE (NEGATIVE); COLOR,URINE YELLOW; GLUCOSE, URINE >=500 mg/dL (NEGATIVE); KETONES,URINE 80 mg/dL (NEGATIVE); LEUKOCYTE ESTERASE,URINE NEGATIVE (NEGATIVE); NITRITE,URINE NEGATIVE (NEGATIVE); PROTEIN,URINE NEGATIVE (NEGATIVE); URINE SPECIFIC GRAVITY 1.031; UROBILINOGEN,URINE NEGATIVE mg/dL (<2.0)
[2018-06-10 10:50] LABS: ALANINE AMINOTRANSFERASE 39 U/L (9-52); ALBUMIN 4.4 g/dL (3.5-5.0); ALKALINE PHOSPHATASE 59 U/L (38-126); ANION GAP 15 (5-19); ASPARTATE AMINO TRANSFERASE 37 U/L (14-36); BILIRUBIN,DIRECT 0.4 mg/dL (0.0-0.4); BILIRUBIN,TOTAL 1.8 mg/dL (0.2-1.3); BLOOD UREA NITROGEN 21 mg/dL (7-20); CARBON DIOXIDE 23 mmol/L (22-30); CHLORIDE 103 mmol/L (98-107); GLUCOSE 190 mg/dL (75-110); LIPASE 95.1 U/L (23-300); SODIUM 141.4 mmol/L (137-145); TOTAL PROTEIN 7.6 g/dL (6.3-8.2)
[2018-06-10 10:57] LABS: ABSOLUTE LYMPHOCYTES# (MANUAL) 0.2 10^3/uL (0.5-4.7); ABSOLUTE MONOCYTES # (MANUAL) 0.3 10^3/uL (0.1-1.4); ABSOLUTE NEUTROPHILS# (MANUAL) 7.1 10^3/uL (1.7-8.2); BAND NEUTROPHILS % (MANUAL) 6 % (3-5); BASOPHILS % (MANUAL) 0 % (0-2); EOSINOPHILS % (MANUAL) 0 % (0-6); LYMPHOCYTES % (MANUAL) 2 % (13-45); MONOCYTES % (MANUAL) 4 % (3-13); SEGMENTED NEUTROPHILS % (MAN) 88 % (42-78); TOTAL CELLS COUNTED 100
[2018-06-10 10:58] LABS: PLATELET COMMENT ADEQUATE
--- NOTE | 2018-06-10 11:42 | ER Document Report ---
ED General - General Chief Complaint: Nausea/Vomiting Stated Complaint: VOMITING Time Seen by Provider: 06/10/18 09:21 Primary Care Provider: RAMIREZ CHEN MD [Primary Care Provider] - Follow up as needed Mode of Arrival: Ambulatory TRAVEL OUTSIDE OF THE [place] IN LAST 30 DAYS: No - HPI Notes: Patient is a 62-year-old female that presents to the emergency department for chief complaint of nausea vomiting and diarrhea. She reports around 7 PM last night she started having nausea vomiting and diarrhea. Patient states she has had about 5 episodes of diarrhea and numerous uncountable amounts of vomiting. She denies any black or bloody stools or blood in her emesis. She reports diffuse abdominal cramping around the time of emesis and bowel movement. Currently states the cramping and diarrhea has improved. She denies associated fevers but does states she gets sweats and chills intermittently. She denies sick contacts, recent travel or eating any new foods. Past Medical History: History of PR, hypothyroidism Past Surgical History: Hysterectomy, appendectomy, cholecystectomy Social History: Denies tobacco and alcohol use Family History: Reviewed and noncontributory for presenting illness Allergies: Reviewed, see documented allergy list. REVIEW OF SYSTEMS: CONSTITUTIONAL : No fever chills diaphoresis No recent illness EENT: No vision changes No congestion No sore throat CARDIOVASCULAR: No chest pain No palpitations RESPIRATORY: No shortness of breath No cough No difficulty breathing GASTROINTESTINAL: abdominal pain nausea vomiting diarrhea GENITOURINARY: No dysuria No hematuria No difficulty urinating MUSCULOSKELETAL: No back pain No leg pain No arm pain SKIN: No rashes No lesions LYMPHATIC: No swollen, enlarged glands. NEUROLOGICAL: No lightheadedness No headache No weakness No paresthesias PSYCHIATRIC: No anxiety No depression PHYSICAL EXAMINATION: Vital signs reviewed, nursing noted reviewed. GENERAL: Well-appearing, well-nourished and in no acute distress. HEAD: Atraumatic, normocephalic. EYES: Eyes appear normal, extraocular movements intact, sclera anicteric, conjunctiva are normal. ENT: nares patent, oropharynx clear without exudates. Dry mucous membranes. NECK: Normal range of motion, supple without lymphadenopathy LUNGS: Breath sounds clear to auscultation bilaterally and equal. No wheezes rales or rhonchi. HEART: Tachycardic rate and regular rhythm without murmurs ABDOMEN: Soft, nontender, normoactive bowel sounds. No rebound, guarding, or rigidity. No masses appreciated. EXTREMITIES: Nontender, good range of motion, no pitting or edema. NEUROLOGICAL: No focal neurological deficits. Moves all extremities spontaneo usly Motor and sensory grossly intact on exam. PSYCH: Normal mood, normal affect. SKIN: Warm, Dry, normal turgor, no rashes or lesions noted on exposed skin - Related Data Allergies/Adverse Reactions: Iodinated Contrast- Oral and IV Dye [IV Dye, Iodine Containing] Allergy (Verified 06/10/18 08:22) levofloxacin [From Levaquin] Allergy (Verified 06/10/18 08:22) morphine Adverse Reaction (Verified 06/10/18 08:22) Nausea Past Medical History - General Information source: Patient - Social History Smoking Status: Never Smoker Chew tobacco use (# tins/day): No Frequency of alcohol use: None Drug Abuse: None Family History: Reviewed & Not Pertinent Patient has suicidal ideation: No Patient has homicidal ideation: No - Past Medical History Cardiac Medical History: Reports: Hx Heart Attack, Hx Hypertension Denies: Hx Coronary Artery Disease Pulmonary Medical History: Reports: Hx Pneumonia Denies: Hx Asthma, Hx Bronchitis, Hx COPD Neurological Medical History: Denies: Hx Cerebrovascular Accident, Hx Seizures Endocrine Medical History: Reports: Hx Diabetes Mellitus Type 2, Hx Hypothyroidism Renal/ Medical History: Denies: Hx Peritoneal Dialysis Musculoskeletal Medical History: Denies Hx Arthritis Past Surgical History: Reports: Hx Appendectomy, Hx Cholecystectomy, Hx Hysterectomy, Hx Orthopedic Surgery - toe, Hx Thyroid Surgery - thyroidectomy - Immunizations Hx Diphtheria, Pertussis, Tetanus Vaccination: Yes - 2011 Physical Exam - Vital signs Vitals: Temp Pulse Resp BP Pulse Ox 99.2 F 111 H 16 126/75 H 98 06/10/18 08:25 06/10/18 08:25 06/10/18 08:25 06/10/18 08:25 06/10/18 08:25 Course - Re-evaluation Re-evalutation: 06/10/18 11:41 Vitals reviewed. Nursing notes reviewed. Patient presented with dry mucous membranes and mild tachycardia. She was given IV fluids and Zofran for symptomatic management. She has not had any further emesis in the emergency room. Her blood work shows a slight elevation of BUN and hemoconcentration consistent with likely mild dehydration. Patient has otherwise unremarkable blood work. Her urinalysis is negative for infection. Symptoms are likely viral in nature. She has a soft nontender abdominal exam and a do not suspect intra-abdominal process currently. Patient will be discharged home and was counseled on hydration. She will be given rectal Phenergan upon her request for nausea management at home. She is stable at discharge. Laboratory 06/10/18 06/10/18 06/10/18 09:50 09:50 09:50 WBC 7.6 RBC 5.50 H Hgb 16.9 H Hct 49.4 H MCV 90 MCH 30.7 MCHC 34.2 RDW 12.6 Plt Count 255 Total Counted 100 Seg Neutrophils % Not Reportable Seg Neuts % (Manual) 88 H Band Neutrophils % 6 H Lymphocytes % Not Reportable Lymphocytes % (Manual) 2 L Monocytes % Not Reportable Monocytes % (Manual) 4 Eosinophils % Not Reportable Eosinophils % (Manual) 0 Basophils % Not Reportable Basophils % (Manual) 0 Absolute Neutrophils Not Reportable Abs Neuts (Manual) 7.1 Absolute Lymphocytes Not Reportable Abs Lymphs (Manual) 0.2 L Absolute Monocytes Not Reportable Abs Monocytes (Manual) 0.3 Absolute Eosinophils Not Reportable Absolute Eos (Manual) 0.0 Absolute Basophils Not Reportable Abs Basophils (Manual) 0.0 Platelet Comment ADEQUATE Sodium 141.4 Potassium 4.0 Chloride 103 Carbon Dioxide 23 Anion Gap 15 BUN 21 H Creatinine 0.63 Est GFR ( Amer) > 60 Est GFR (Non-Af Amer) > 60 Glucose 190 H Calcium 10.0 Total Bilirubin 1.8 H Direct Bilirubin 0.4 Neonat Total Bilirubin Not Reportable Neonat Direct Bilirubin Not Reportable Neonat Indirect Bili Not Reportable AST 37 H ALT 39 Alkaline Phosphatase 59 Total Protein 7.6 Albumin 4.4 Lipase 95.1 Urine Color YELLOW Urine Appearance CLEAR Urine pH 5.0 Ur Specific [place] 1.031 Urine Protein NEGATIVE Urine Glucose (UA) >=500 H Urine Ketones 80 H Urine Blood NEGATIVE Urine Nitrite NEGATIVE Urine Bilirubin NEGATIVE Urine Urobilinogen NEGATIVE Ur Leukocyte Esterase NEGATIVE Urine WBC (Auto) 0 Urine RBC (Auto) 1 Squamous Epi Cells Auto 2 Urine Mucus (Auto) RARE Urine Ascorbic Acid NEGATIVE - Vital Signs Vital signs: Temp Pulse Resp BP Pulse Ox 99.2 F 111 H 16 126/75 H 98 06/10/18 08:25 06/10/18 08:25 06/10/18 08:25 06/10/18 08:25 06/10/18 08:25 - Laboratory Result Diagrams: 06/10/18 09:50 06/10/18 09:50 Laboratory results interpreted by me: 06/10/18 06/10/18 06/10/18 09:50 09:50 09:50 RBC 5.50 H Hgb 16.9 H Hct 49.4 H Seg Neuts % (Manual) 88 H Band Neutrophils % 6 H Lymphocytes % (Manual) 2 L Abs Lymphs (Manual) 0.2 L BUN 21 H Glucose 190 H Total Bilirubin 1.8 H AST 37 H Urine Glucose (UA) >=500 H Urine Ketones 80 H Discharge - Discharge Clinical Impression: Nausea vomiting and diarrhea Condition: Stable Disposition: HOME, SELF-CARE Instructions: Antinausea Medication ([facility]), Diarrhea, Nonspecific ([facility]), Vomiting ([facility]) Additional Instructions: Please return to the emergency department if you have any worsening, or concern of your symptoms. Please return to the emergency department if you develop chest pain, difficulty breathing, severe abdominal pain, or ongoing vomiting. Please follow-up with your primary care physician in 2-3 days and any other recommended physicians. If prescribed, take all medications as directed. If you have any questions or concerns do not hesitate to return the emergency department for evaluation. [] Prescriptions: Promethazine HCl [Phenergan 25 mg Supp.rect] 1 supp CA Q6H #12 supp.rect Referrals: RAMIREZ CHEN MD [Primary Care Provider] - Follow up in 3-5 days
[2018-06-10 12:10] VITALS: BP 116/70
== END 2018-06-10 12:10 | disposition home or self-care (01) ==
LOC: ER 08:20
DX: R11.2 Nausea with vomiting, unspecified (principal); R19.7 Diarrhea, unspecified
CPT/HCPCS: 99284; 96361; 96374; 36415; 83690; 85025; 80053; 81001; J2405; J7030

== ENCOUNTER 2018-08-30 02:33 | Emergency (ER) | payer OTHER ==
[2018-08-30] MEDS ORDERED: ASPIRIN 81 MG TABLET, CHEWABLE PO ONE (03:34)
[2018-08-30] MEDS ORDERED: FAMOTIDINE 20 MG TABLET PO ONE (03:35)
--- NOTE | 2018-08-30 03:37 | ER Document Report ---
ED Cardiac - General Chief Complaint: Chest Pain > 30 Stated Complaint: CHEST PAIN Time Seen by Provider: 08/30/18 03:20 Primary Care Provider: RAMIREZ CHEN MD [Primary Care Provider] - Follow up as needed Notes: Patient is a 62-year-old female that comes to the emergency department for chief complaint of chest pain. She states she has a discomfort in her chest intermittently, she states she started having this and around dinnertime, she states it feels like heartburn with a burning in her chest up to her throat. She states she does not actually have pain, just the discomfort. She reports some nausea with the heartburn sensation. She states she hopes it is just heartburn, she did have lasagna, however she did have an [place] last January (transferred to [facility], had cardiac cath without stents showing approximately 30% blockages). She follows with hand cultivator Dr. Messer, is on Brilinta, is also treated for type 2 diabetes, hypertension, hyperlipidemia, and anxiety with Ativan. She states that it is been a hard week with a very strenuous vacation where she has a lot of anxiety. She also states she was eating poorly compared to her recent improved diet. TRAVEL OUTSIDE OF THE [place] IN LAST 30 DAYS: No - Related Data Allergies/Adverse Reactions: Iodinated Contrast- Oral and IV Dye [IV Dye, Iodine Containing] Allergy (Verified 06/10/18 08:22) levofloxacin [From Levaquin] Allergy (Verified 06/10/18 08:22) morphine Adverse Reaction (Verified 06/10/18 08:22) Nausea Past Medical History - General Information source: Patient - Social History Smoking Status: Never Smoker Frequency of alcohol use: None Drug Abuse: None Lives with: Family Family History: Reviewed & Not Pertinent - Past Medical History Cardiac Medical History: Reports: Hx Heart Attack, Hx Hypertension Denies: Hx Coronary Artery Disease Pulmonary Medical History: Reports: Hx Pneumonia Denies: Hx Asthma, Hx Bronchitis, Hx COPD Neurological Medical History: Denies: Hx Cerebrovascular Accident, Hx Seizures Endocrine Medical History: Reports: Hx Diabetes Mellitus Type 2, Hx Hypothyroidism Renal/ Medical History: Denies: Hx Peritoneal Dialysis Musculoskeletal Medical History: Denies Hx Arthritis Past Surgical History: Reports: Hx Appendectomy, Hx Cholecystectomy, Hx Hysterectomy, Hx Orthopedic Surgery - toe, Hx Thyroid Surgery - thyroidectomy - Immunizations Hx Diphtheria, Pertussis, Tetanus Vaccination: Yes - 2011 Review of Systems - Review of Systems Constitutional: No symptoms reported EENT: No symptoms reported Cardiovascular: See HPI Respiratory: No symptoms reported Gastrointestinal: See HPI Genitourinary: No symptoms reported Female Genitourinary: No symptoms reported Musculoskeletal: No symptoms reported Skin: No symptoms reported Hematologic/Lymphatic: No symptoms reported Neurological/Psychological: See HPI Physical Exam - Vital signs Vitals: Temp Pulse Resp BP Pulse Ox 98.4 F 73 20 151/87 H 100 08/30/18 02:35 08/30/18 02:35 08/30/18 02:35 08/30/18 02:35 08/30/18 02:35 - Notes Notes: GENERAL: Anxious but in no distress. HEAD: Normocephalic, atraumatic. EYES: Pupils equal, round, and reactive to light. Extraocular movements intact. ENT: Oral mucosa moist, tongue midline. Oropharynx unremarkable. Airway patent. NECK: Full range of motion. Supple. Trachea midline. LUNGS: Clear to auscultation bilaterally, no wheezes, rales, or rhonchi. No respiratory distress. HEART: Regular rate and rhythm. No murmur ABDOMEN: Soft, non-tender. Non-distended. Bowel sounds present in all 4 quadrants. GENITOURINARY: Deferred EXTREMITIES: Moves all 4 extremities spontaneously. No edema, normal radial and dorsalis pedis pulses bilaterally. No cyanosis. BACK: no cervical, thoracic, lumbar midline tenderness. No saddle anesthesia, normal distal neurovascular exam. Moves all extremities in full range of motion. NEUROLOGICAL: Alert and oriented x3. Normal speech. Cranial nerves II through XII grossly intact. PSYCH: Patient is anxious, talks about her anxiety, talks in great detail and at length. SKIN: Warm, dry, normal turgor. No rashes or lesions noted. Course - Re-evaluation Re-evalutation: Patient repeatedly tells me that she has frustrating problem distinguishing "anxiety from chest pain". She tells me she did not have chest pain but she felt like there was something over her chest earlier that was uncomfortable and she wanted to be checked. When I asked her if it feels like discomfort she cannot describe the sensation she is feeling. She denies feeling any pain at any point however. Very atypical symptoms. She also is complaining of heartburn. Despite her difficult point and atypical symptoms work-up was performed. Given Pepcid with her aspirin because of reported reflux symptoms. Checks x-ray unremarkable, troponin negative, EKG showing no change from prior. Chemistry nonspecific. Discussed with patient, patient asymptomatic on ree valuation, resting comfortably. Troponin will be cycled. Troponin cycled and again is negative. Reevaluated patient. She is smiling and well-appearing. Because of her history, age, multiple comorbidities I did discuss potential admission, however she is requesting to leave. She states she will follow-up almost immediately with her hand cultivator and primary care. She is requesting a copy of her labs. Because of her atypical symptoms, negative work-up, and excellent follow-up she will be discharged with return precautions which were discussed in detail. Patient states satisfaction agreement. - Vital Signs Vital signs: Temp Pulse Resp BP Pulse Ox 98.4 F 73 15 125/86 H 98 08/30/18 02:35 08/30/18 02:35 08/30/18 07:00 08/30/18 03:18 08/30/18 07:00 - Laboratory Result Diagrams: 08/30/18 03:53 08/30/18 05:20 Laboratory results interpreted by me: 08/30/18 05:20 Chloride 108 H Glucose 119 H Total Protein 5.7 L Albumin 3.4 L - EKG Interpretation by Me Additional EKG results interpreted by me: EKG showed sinus rhythm at a rate of 74. Borderline R wave progression in the anterior leads. No T wave inversions or ST segment changes in consecutive leads. QTc of 426. No change from prior EKG. Discharge - Discharge Clinical Impression: Discomfort in chest, Anxiety GERD (gastroesophageal reflux disease) Qualifiers: Esophagitis presence: esophagitis presence not specified Qualified Code(s): K21.9 - Gastro-esophageal reflux disease without esophagitis Condition: Stable Disposition: HOME, SELF-CARE Additional Instructions: Your atypical symptoms and your negative work-up are reassuring. Follow-up closely with your primary care provider and hand cultivator for cayetano tional evaluation and management. Return if you worsen including pain in your chest, passing out, difficulty breathing, or any other concerning or worsening symptoms. Referrals: RAMIREZ CHEN MD [Primary Care Provider] - Follow up as needed
[2018-08-30 04:23] LABS: ABSOLUTE EOSINOPHILS # (AUTO) 0.1 10^3/uL (0.0-0.6); ABSOLUTE LYMPHOCYTES (AUTO) 1.5 10^3/uL (0.5-4.7); ABSOLUTE MONOCYTES (AUTO) 0.7 10^3/uL (0.1-1.4); ABSOLUTE NEUT (AUTO) 6.3 10^3/uL (1.7-8.2); BASOPHILS % (AUTO) 0.3 % (0-2); EOSINOPHILS % (AUTO) 1.1 % (0-6); HEMATOCRIT 42.1 % (36.0-47.0); HEMOGLOBIN 14.2 g/dL (12.0-15.5); LYMPHOCYTES % (AUTO) 17.5 % (13-45); MEAN CORPUSCULAR HEMOGLOBIN 29.2 pg (27.0-33.4); MEAN CORPUSCULAR HGB CONC 33.7 g/dL (32.0-36.0); MEAN CORPUSCULAR VOLUME 87 fl (80-97); MONOCYTES % (AUTO) 7.6 % (3-13); PLATELET COUNT 241 10^3/uL (150-450); RED BLOOD COUNT 4.86 10^6/uL (3.72-5.28); RED CELL DISTRIBUTION WIDTH 13.1 % (11.5-14.0); SEGMENTED NEUTROPHILS % (AUTO) 73.5 % (42-78); TOTAL CELLS COUNTED % (AUTO) 100 %; WHITE BLOOD COUNT 8.6 10^3/uL (4.0-10.5)
--- NOTE | 2018-08-30 04:47 | RADIOLOGY REPORT (SQ) ---
Chest single view on 08/30/2018 at 4:06 AM CLINICAL INDICATION: Chest pain COMPARISON: 04/09/2018 FINDINGS: The lungs are clear. Cardiac, hilar and mediastinal contours are within normal limits. Pulmonary vascularity is within normal limits. No bony abnormality is noted. IMPRESSION: No active disease.
[2018-08-30 05:55] LABS: ALANINE AMINOTRANSFERASE 32 U/L (9-52); ALBUMIN 3.4 g/dL (3.5-5.0); ALKALINE PHOSPHATASE 65 U/L (38-126); ANION GAP 6 (5-19); ASPARTATE AMINO TRANSFERASE 23 U/L (14-36); BILIRUBIN,TOTAL 1.3 mg/dL (0.2-1.3); BLOOD UREA NITROGEN 17 mg/dL (7-20); CALCIUM 9.6 mg/dL (8.4-10.2); CARBON DIOXIDE 27 mmol/L (22-30); CHLORIDE 108 mmol/L (98-107); GLUCOSE 119 mg/dL (75-110); POTASSIUM 3.8 mmol/L (3.6-5.0); SODIUM 140.5 mmol/L (137-145); TOTAL PROTEIN 5.7 g/dL (6.3-8.2)
[2018-08-30 08:14] VITALS: BP 129/89
--- NOTE | 2018-08-30 19:27 | EKG REPORT ---
SEVERITY:- ABNORMAL ECG - SINUS RHYTHM LEFT ANTERIOR FASCICULAR BLOCK BORDERLINE R WAVE PROGRESSION, ANTERIOR LEADS BORDERLINE T ABNORMALITIES, ANTERIOR LEADS : Confirmed by: Sejal Ramirez MD 30-Aug-2018 19:26:55
== END 2018-08-30 08:14 | disposition home or self-care (01) ==
LOC: ER 02:33
DX: K21.9 Gastro-esophageal reflux disease without esophagitis (principal); F41.9 Anxiety disorder, unspecified; R11.0 Nausea; I10 Essential (primary) hypertension; I25.2 Old myocardial infarction; Z79.02 Long term (current) use of antithrombotics/antiplatelets; E11.9 Type 2 diabetes mellitus without complications; E78.5 Hyperlipidemia, unspecified; Z79.899 Other long term (current) drug therapy; Z91.040 Latex allergy status; Z88.1 Allergy status to other antibiotic agents
CPT/HCPCS: 36415; 71045; 80053; 84484; 85025; 93005; 93010; 99285